=== PATIENT | female | born 1965 | race African-American/Black ===

== ENCOUNTER 2022-03-08 16:05 | Observation (INO) | payer OTHER, SELFPAY ==
[2022-03-08] VITALS (10 sets, daily range): BP systolic 168–198; BP diastolic 84–102; PULSE 62–99; RESP 15–20; TEMP 36.3–36.8; O2SAT 99–100; BMI 25.2
--- NOTE | ~2022-03-08 | CT_ITS ---
EXAMINATION: CT abdomen pelvis w con DATE: 03/08/2022 18:02 INDICATION: abd pain TECHNIQUE: Computed tomography (CT) of the abdomen and pelvis was performed with 100 mL Omnipaque-300 intravenous contrast. Automated exposure control and iterative reconstruction technique were employe d. The dose-length product was 538.63 mGy-cm. COMPARISON: None. FINDINGS: Lower thorax: Unremarkable Liver: Subcentimeter right lobe hypodensity, likely cyst. Biliary/Gallbladder: Gallbladder is mostly contracted. No bile duct dilation. Pancreas: No mass or duct dilation. Spleen: Normal. Adrenals:No mass. Kidneys: No mass, stone, or hydronephrosis. GI tract: No small or large bowel dilation. Normal appendix. Mesentery/Peritoneum: No ascites, mass, or free air. Retroperitoneum: No mass. Atherosclerotic abdominal aortic and/or arterial calcifications. Pelvis: Distended gallbladder, with wall thickening. Uterus is absent. Soft Tissues: Soft tissues and body wall unremarkable. Bones: No acute osseous finding. IMPRESSION: Possible cystitis. No other acute abdominopelvic process detected. Reviewed, dictated and finalized at location K.
--- NOTE | ~2022-03-08 | CT_ITS ---
EXAMINATION: CT brain wo con DATE: 03/08/2022 18:33 INDICATION: headache . TECHNIQUE: Computed tomography (CT) of the head was performed without intravenous contrast. The mA wa s adjusted according to patient size. Iterative reconstruction technique was employed. The dose-lengt h product was 605.33 mGy-cm. COMPARISON: None FINDINGS: No acute intracranial hemorrhage or extra-axial fluid collection. No hydrocephalus, mass, or herniation. No acute ischemic infarct. Unremarkable dural venous sinus attenuation. No acute osseous abnormality. The aerated spaces are clear. IMPRESSION: No acute intracranial process. Reviewed, dictated and finalized at location K.
--- NOTE | ~2022-03-08 | US_ITS ---
EXAMINATION: US abdomen limited DATE: 03/08/2022 16:49 INDICATION: Abdominal pain TECHNIQUE: Multiple grayscale and Doppler ultrasound images of the abdomen were obtained. COMPARISON: None available FINDINGS: Bowel gas obscures visualization of the pancreas. The visualized portions of the pancreas a re unremarkable. The liver is normal with normal echogenicity and echotexture. No surface nodularity. Normal hepatopetal flow in the main portal vein. The gallbladder is contracted. No stones or pericho lecystic fluid are identified. The normal common bile duct measures 4 mm. There was no sonographic Mu rphy sign. IMPRESSION: 1. No sonographic correlate for the patient's symptoms. Reviewed, dictated and finalized at location A.
--- NOTE | ~2022-03-08 | XR_ITS ---
XR chest 1V portable DATE: 03/08/2022 16:26 INDICATION: Generalized chest pain. Headache. TECHNIQUE: Portable upright AP chest on 03/08/2022 at 1621 hours COMPARISON: None FINDINGS: Normal heart size. No hilar or mediastinal enlargement. No pulmonary infiltrate or consolid ation, pleural effusion or pulmonary vascular congestion or pneumothorax. IMPRESSION: No active cardiopulmonary disease Reviewed, dictated and finalized at location A.
--- NOTE | 2022-03-08 16:07 | ECG_ITS ---
Measurements Intervals [place] Rate: 70 P: 60 [place]: 138 QRS: 47 QRSD: 82 T: 39 QT: 415 QTc: 450 Interpretive Statements SINUS RHYTHM POSSIBLE LEFT ATRIAL ENLARGEMENT LEFT VENTRICULAR HYPERTROPHY AND ST-T CHANGE ABNORMAL ECG NO PREVIOUS ECG AVAILABLE FOR COMPARISON Electronically Signed On 03-08-2022 16:18:41 CDT by Miah Mayorga M.D.
[2022-03-08 16:29] LABS: Basophils Percent Auto 0.4 % (0.2-1.2); Eosinophils Absolute Auto 0.1 K/mm3 (0-0.3); Eosinophils Percent Auto 0.6 % (0-4.4); Hematocrit 38.4 % (37.0-47.0); Hemoglobin 12.8 g/dL (12.0-15.0); Immature Granulocyte Absolute 0.02 K/mm3 (0.00-0.031); Immature Granulocyte Percent A 0.2 % (0-0.5); Lymphocytes Absolute Auto 3.64 K/mm3 (0.9-3.2); Lymphocytes Percent Auto 43.4 % (18.3-44.2); Mean Corpuscular HGB Conc 33.3 g/dl (32-36); Mean Corpuscular Hemoglobin 31.9 pg (26-34); Mean Corpuscular Volume 95.8 fl (80-100); Monocytes Absolute Auto 0.7 K/mm3 (0.1-0.6); Monocytes Percent Auto 8.7 % (2.6-8.5); Neutrophils Absolute Auto 3.9 K/mm3 (1.3-6.7); Neutrophils Percent Auto 46.7 % (45.5-73.1); Platelet Count Result 252 k/mm3 (150-375); Red Blood Count 4.01 M/mm3 (4.2-5.4); Red Cell Distribution Width 13.1 % (11.5-14.5); White Blood Count 8.4 K/mm3 (4.5-10.0)
[2022-03-08 16:34] LABS: Alanine Aminotransferase 16 U/L (6-35); Albumin Level 4.9 g/dL (3.5-5.1); Alkaline Phosphatase 81 U/L (38-126); Anion Gap 10 mmol/L (8-16); Aspartate Amino Transferase 26 U/L (14-36); Bilirubin,Total 0.6 mg/dL (0.2-1.3); Blood Urea Nitrogen 21 mg/dL (7-17); Calcium 10.1 mg/dL (8.4-10.2); Carbon Dioxide 22 mmol/L (22-30); Chloride 108 mmol/L (98-107); Estimated CRCL calculation 82 ml/min; Estimated Glomerular Filt Rate > 60; Glucose 94 mg/dL (65-110); Lipase 109 U/L (23-300); Potassium 3.5 mmol/L (3.4-5.0); Sodium 140 mmol/L (137-145)
[2022-03-08 16:44] LABS: INR 0.9; Prothrombin Time 11.9 Seconds (11.1-14.7)
[2022-03-08 16:45] LABS: Partial Thromboplastin Time 34.1 SECONDS (22.3-36.8)
[2022-03-08 16:46] LABS: Troponin I < 0.012 ng/mL (0.000-0.034)
[2022-03-08] MEDS: ASPIRIN 81 MG CHEWABLE TABLET 324 MG PO (16:56)
--- NOTE | 2022-03-08 18:24 | ED.GENADULT ---
HPI - General Adult General Chief complaint: Headache Stated complaint: chest pain Time Seen by Provider: 03/08/22 16:05 Source: RN notes reviewed History of Present Illness HPI narrative: Patient presents emergency department from home via EMS for chest pain. Patient states that she was sitting at home watching TV when she suddenly got a heaviness in her chest she states the pain went into her belly as well as some tingling in her chin and a frontal headache. States that she then became very sweaty but she called EMS at that time when they arrived states that symptoms were improved patient states she does have a history of previous AR the last 1 being in 2018 and is felt by cardiology done at [facility]. Patient at this time states she has upper abdominal pain she denies having any fevers or chills shortness of breath nausea vomiting diarrhea or any other symptoms patient states she had eaten barbecue earlier today as well as Ramen noodles and cheese balls from [employer] Home Medications Medication Instructions Recorded Confirmed albuterol sulfate 90 mcg/actuation 1 inh inhalation Q4H 03/04/21 03/04/21 aerosol inhaler blood glucose control, normal 03/04/21 03/04/21 (OneTouch Verio Mid Control solution) blood sugar diagnostic (OneTouch 03/04/21 03/04/21 Verio test strips) blood-glucose meter (OneTouch 03/04/21 03/04/21 Verio Flex Meter) calcium carbonate 600 mg calcium 600 mg PO BID 03/04/21 03/04/21 (1,500 mg) tablet cyclobenzaprine 10 mg tablet 10 mg PO ONCE 03/04/21 03/04/21 hydrochlorothiazide 25 mg tablet 25 mg PO DAILY 03/04/21 03/04/21 hydroxyzine HCl 50 mg tablet 50 mg PO QID PRN 03/04/21 03/04/21 insulin lispro 100 unit/mL 6 unit subcut TID 03/04/21 03/04/21 subcutaneous solution (Humalog U-100 Insulin) insulin syringe,safetyneedle 1 mL 03/04/21 03/04/21 30 gauge x 02/01 insulin syringe-needle U-100 0.5 03/04/21 03/04/21 mL 31 gauge x 516 (TRUEplus Insulin) insulin syringe-needle U-100 1 mL 03/04/21 03/04/21 31 gauge x 15/64 (BD Veo Insulin Syringe Ultra-Fine) lancets (Microlet Lancet) 03/04/21 03/04/21 lancets 33 gauge (OneTouch Delica 03/04/21 03/04/21 Lancets) lisinopril 40 mg tablet 40 mg PO DAILY 03/04/21 03/04/21 loratadine 10 mg tablet 10 mg PO DAILY 03/04/21 03/04/21 multivitamin (Daily-Sushma tablet) 1 tablet PO DAILY 03/04/21 03/04/21 ondansetron 4 mg disintegrating 4 mg PO Q8H 03/04/21 03/04/21 tablet pantoprazole 40 mg tablet,delayed 40 mg PO QAM 03/04/21 03/04/21 release pen needle, diabetic 31 gauge x 03/04/21 03/04/2102/01 (BD Ultra-Fine Short Pen Needle) sertraline 50 mg tablet 50 mg PO DAILY 03/04/21 03/04/21 atorvastatin 80 mg tablet 80 mg PO DAILY 03/04/22 escitalopram oxalate 10 mg tablet 10 mg PO DAILY 03/04/22 fluoxetine 20 mg capsule 20 mg PO DAILY 03/04/22 folic acid 1 mg tablet 1 mg PO DAILY PRN 03/04/22 glimepiride 2 mg tablet 2 mg PO BID 03/04/22 ibuprofen 800 mg tablet 800 mg PO Q6-8H PRN 03/04/22 labetalol 100 mg tablet 100 mg PO BID 03/04/22 Allergies Allergy/AdvReac Type Severity Reaction Status Date / Time adhesive Allergy Unknown Other Verified 03/04/22 13:48 oxycodone Allergy Unknown Rash Verified 03/04/22 13:48 tramadol Allergy Unknown Rash Verified 03/04/22 13:48 Review of Systems Review of Systems: Gen.: Denies fevers or chills Eyes: Denies eye pain or visual change ENT: Denies congestion Respiratory: Denies shortness of breath or cough CV: Reports chest pain GI: Reports upper abdominal pain denies nausea vomiting or diarrhea Musculoskeletal: Denies back pain or muscle pain Neuro: Denies numbness, tingling, weakness or focal weakness, reports frontal headache Skin: Denies rash Except as documented, all other systems reviewed and negative [facility] Past Medical History Medical History Arthritis Diabetes Surgical History Surgi
[2022-03-08] MEDS: LABETALOL HCL 100 MG TABLET PO (19:16)
[2022-03-08] MEDS: MORPHINE SULFATE (*CRX) 2 MG/ML INJ IV PUSH (19:18)
--- NOTE | 2022-03-08 19:27 | PC.NURSE ---
Assumed care of pt at this time. Pt alert and upright on stretcher, updated on POC.
[2022-03-08 19:34] LABS: Troponin I < 0.012 ng/mL (0.000-0.034)
--- NOTE | 2022-03-08 19:38 | PM.IMHP ---
H&P: HPI History of Present Illness Date/Time: 03/08/22 19:38 Chief Complaint: Chest pain PMFSH Past Medical History Medical History Arthritis Diabetes Surgical History Surgical History (Updated 03/04/22 @ 13:58 by Maria C Griffin MA) H/O foot surgery H/O lumpectomy (~2016) Social History Social History Social History: current smoker Years smoked: 35 Smoking status: Current every day smoker Tobacco type: cigarettes Alcohol intake: current Drinks per week: 6 Substance use: never Spiritual care concerns: Yes (Taoism) Meds Home Medications and Allergies Home Medications Medication Instructions Recorded Confirmed Type albuterol sulfate 90 mcg/actuation 1 inh inhalation Q8H PRN Shortness 03/04/21 03/08/22 History aerosol inhaler Of Breath blood glucose control, normal 03/04/21 03/04/21 History (OneTouch Verio Mid Control solution) blood sugar diagnostic (OneTouch 03/04/21 03/04/21 History Verio test strips) blood-glucose meter (OneTouch 03/04/21 03/04/21 History Verio Flex Meter) calcium carbonate 600 mg calcium 600 mg PO BID PRN Heartburn 03/04/21 03/08/22 History (1,500 mg) tablet hydrochlorothiazide 25 mg tablet 25 mg PO DAILY 03/04/21 03/08/22 History hydroxyzine HCl 50 mg tablet 50 mg PO DAILY PRN Itching 03/04/21 03/08/22 History insulin lispro 100 unit/mL 6 unit subcut TID 03/04/21 03/08/22 History subcutaneous solution (Humalog U-100 Insulin) insulin syringe,safetyneedle 1 mL 03/04/21 03/04/21 History 30 gauge x 5/16 insulin syringe-needle U-100 0.5 03/04/21 03/04/21 History mL 31 gauge x 5/16 (TRUEplus Insulin) insulin syringe-needle U-100 1 mL 03/04/21 03/04/21 History 31 gauge x 15/64 (BD Veo Insulin Syringe Ultra-Fine) lancets (Microlet Lancet) 03/04/21 03/04/21 History lancets 33 gauge (OneTouch Delica 03/04/21 03/04/21 History Lancets) lisinopril 40 mg tablet 40 mg PO DAILY 03/04/21 03/08/22 History loratadine 10 mg tablet 10 mg PO DAILY 03/04/21 03/08/22 History multivitamin (Daily-Sushma tablet) 1 tablet PO DAILY 03/04/21 03/08/22 History ondansetron 4 mg disintegrating 4 mg PO BID PRN Nausea 03/04/21 03/08/22 History tablet pantoprazole 40 mg tablet,delayed 40 mg PO QAM 03/04/21 03/08/22 History release pen needle, diabetic 31 gauge x 03/04/21 03/04/21 History 02/01 (BD Ultra-Fine Short Pen Needle) atorvastatin 80 mg tablet 80 mg PO DAILY 03/04/22 03/08/22 History escitalopram oxalate 10 mg tablet 10 mg PO DAILY 03/04/22 03/08/22 History folic acid 1 mg tablet 1 mg PO DAILY 03/04/22 03/08/22 History glimepiride 2 mg tablet 2 mg PO BID 03/04/22 03/08/22 History ibuprofen 800 mg tablet 800 mg PO Q6-8H PRN Pain 03/04/22 03/08/22 History labetalol 100 mg tablet 100 mg PO BID 03/04/22 03/08/22 History celecoxib 100 mg capsule 100 mg PO DAILY PRN Pain 03/08/22 03/08/22 History clonidine 0.2 mg/24 hr weekly 1 patch WEEKLY 03/08/22 03/08/22 History transdermal patch duloxetine 30 mg capsule,delayed 30 mg PO DAILY 03/08/22 03/08/22 History release insulin glargine 100 unit/mL (3 42 unit subcut HS 03/08/22 03/08/22 History mL) subcutaneous pen (Bongaglar Dylan U-100 Insulin) nifedipine 90 mg tablet,extended 90 mg PO DAILY 03/08/22 03/08/22 History release Allergies Allergy/AdvReac Type Severity Reaction Status Date / Time adhesive Allergy Unknown Other Verified 03/04/22 13:48 oxycodone Allergy Unknown Rash Verified 03/04/22 13:48 tramadol Allergy Unknown Rash Verified 03/04/22 13:48 Vital Signs Vital Signs - 24 hr 03/08/22 16:11 03/08/22 18:48 03/08/22 19:16 Temperature 97.3 F L 98.3 F Pulse Rate 72 67 99 Respiratory Rate 17 17 Blood Pressure 193/84 H 198/96 H Pulse Oximetry 100 100 Oxygen Delivery Room Air 03/08/22 19:25 Temperature Pulse Ra
--- NOTE | 2022-03-08 20:09 | PC.NURSE ---
Attempted to call report to IMU at this time and was informed pt will have roomate. Needs COVID swab.
[2022-03-08 20:55] LABS: SARS-CoV-2 RNA PCR Negative
--- NOTE | 2022-03-08 21:08 | ADMGEN ---
This patient, Elizabeth Clark, was admitted to IMU Room 206-01. Patient/family oriented to hospital policies and general routines including ID bracelet, bed and alarms, visiting hours, pain management, procedures, bathroom and other care routines, personal items, smoking policy, room service/diet, and visiting hours. Information on how to activate the Rapid Response Team has been discussed. Patient/Family are encouraged to report perceived risks to care and to ask questions if they do not understand what they are told or what they should do.
[2022-03-08 21:28] LABS: Glucose Point of Care 118 mg/dl (65-105)
[2022-03-08 22:27] LABS: Troponin I < 0.012 ng/mL (0.000-0.034)
[2022-03-08] MEDS: SUMAtriptan SUCCINATE 6 MG/0.5 ML VIAL SUB-Q (22:40)
[2022-03-09] VITALS (14 sets, daily range): BP systolic 116–160; BP diastolic 66–88; PULSE 56–71; RESP 12–20; TEMP 36–36.9; O2SAT 98–100
--- NOTE | 2022-03-09 | ECHO_ITS ---
Patient Info Name: Elizabeth Clark Age: 56 years : 1965 Gender: Female Ht: 69 in Wt: 171 lbs BSA: 1.95 m2 HR: 60 bpm BP: 160 / 84 mmHg Exam Date: 03/09/2022 9:00 AM Exam Location: [facility] Patient Status: Inpatient Admit Date: 03/08/2022 Staff Ordering Physician: Nova Gandhi MD Human Resources Operations Specialist: Erick Ponce, GREER, RT Attending Provider: Nova Gandhi MD Referring Physician: Oksana SANCHEZ; Exam Type: CA echo doppler color flow Study Info Indications R07.9 - Chest pain, unspecified Complete two-dimensional, color flow and Doppler transthoracic echocardiogram is performed. Strain analysis performed. Summary 1. Complete two-dimensional, color flow and Doppler transthoracic echocardiogram is performed. 2. Normal LV size, mild LVH, normal LV systolic function with ejection fraction 65-70%; grade 2 diastolic dysfunction. Mild left atrial enlargement. Normal mitral valve structure, trivial MR. Aortic valve not well visualized, no hemodynamically significant stenosis. Mild aortic regurgitation. Trivial TR, unable to assess RVSP due to inadequate TR jet. Sinus rhythm. Left Ventricle Left ventricular chamber dimension is normal. Left ventricular systolic function is normal, estimated at 65-70%. There is mildly increased left ventricular wall thickness. Left ventricular septal wall motion is normal. The left ventricular diastolic function is grade II diastolic dysfunction. Right Ventricle Right ventricular chamber dimension is normal. Right ventricular systolic function is normal. Left Atria Left atrial chamber dimension is mildly enlarged. Right Atria Right atrial chamber dimension is normal. Aortic Valve The aortic valve is not well visualized. There is no aortic valve stenosis. There is mild aortic valve regurgitation. Pulmonic Valve The pulmonic valve is not well visualized. Mitral Valve The mitral valve has normal leaflets. There is trace mitral valve regurgitation. Tricuspid Valve The tricuspid valve leaflets are normal. There is trace tricuspid valve regurgitation. Pericardium/Pleural The pericardium appears normal. Inferior Vena Cava Normal inferior vena cava with >50% collapse upon inspiration consistent with normal right atrial pressure, 8 mmHg. Aorta The aortic root size at the sinus of Valsalva is normal. The prox ascending aorta size is normal. Left Ventricular Outflow Tract Name Value Normal LVOT 2D LVOT Diameter 2.1 cm LVOT Doppler LVOT Peak Gradient 4 mmHg LVOT Mean Gradient 2 mmHg LVOT VTI 21 cm LVOT VTI/AV VTI Ratio 0.8 LVOT Stroke Volume 74 ml LVOT CO 4.5 l/min LVOT CI 2.3 l/min/m2 Mitral Valve Name Value Normal MV Doppler
[2022-03-09 04:45] LABS: Basophils Percent Auto 0.6 % (0.2-1.2); Eosinophils Absolute Auto 0.1 K/mm3 (0-0.3); Eosinophils Percent Auto 1.3 % (0-4.4); Hematocrit 36.1 % (37.0-47.0); Hemoglobin 11.7 g/dL (12.0-15.0); Immature Granulocyte Absolute 0.01 K/mm3 (0.00-0.031); Immature Granulocyte Percent A 0.2 % (0-0.5); Lymphocytes Absolute Auto 2.66 K/mm3 (0.9-3.2); Lymphocytes Percent Auto 49.4 % (18.3-44.2); Mean Corpuscular HGB Conc 32.4 g/dl (32-36); Mean Corpuscular Hemoglobin 31.7 pg (26-34); Mean Corpuscular Volume 97.8 fl (80-100); Mean Platelet Volume 10.3 fl (7.4-10.4); Monocytes Absolute Auto 0.5 K/mm3 (0.1-0.6); Monocytes Percent Auto 9.7 % (2.6-8.5); Neutrophils Absolute Auto 2.1 K/mm3 (1.3-6.7); Neutrophils Percent Auto 38.8 % (45.5-73.1); Platelet Count Result 225 k/mm3 (150-375); Red Blood Count 3.69 M/mm3 (4.2-5.4); Red Cell Distribution Width 13.1 % (11.5-14.5); White Blood Count 5.4 K/mm3 (4.5-10.0)
[2022-03-09 04:59] LABS: Alanine Aminotransferase 11 U/L (6-35); Alkaline Phosphatase 59 U/L (38-126); Anion Gap 5 mmol/L (8-16); Aspartate Amino Transferase 18 U/L (14-36); Bilirubin,Total 0.6 mg/dL (0.2-1.3); Blood Urea Nitrogen 14 mg/dL (7-17); Calcium 8.8 mg/dL (8.4-10.2); Carbon Dioxide 24 mmol/L (22-30); Chloride 108 mmol/L (98-107); Estimated CRCL calculation 94 ml/min; Estimated Glomerular Filt Rate > 60; Glucose 112 mg/dL (65-110); Potassium 3.7 mmol/L (3.4-5.0); Sodium 137 mmol/L (137-145)
--- NOTE | 2022-03-09 08:35 | PM.CNCAR ---
Assessment and Plan Assessment and plan (1) Chest pain: Code(s): R07.9 - Chest pain, unspecified Status: Acute Assessment and Plan: 56-year-old female with hypertension, type 2 diabetes mellitus on insulin, ? COPD, ? History of CVA, anxiety/depression, tobacco abuse, alcohol abuse. Patient presents to hospital with epigastric and lower substernal chest discomfort associated with nausea, vomiting, headache in the setting of heavy alcohol abuse EKG shows sinus rhythm, LVH with secondary ST-T abnormality. Serial troponins are negative. Patient does have multiple coronary risk factors including hypertension, diabetes mellitus, tobacco abuse. Her echocardiogram which I personally evaluated showed preserved LV systolic function without significant wall motion abnormality. She may need noninvasive ischemic evaluation, which can be performed as an outpatient. Patient was advised to cut down on alcohol and stop smoking. Patient had 2.3 asymptomatic pause on telemetry while sleeping. Recommend wean off clonidine. Outpatient Cardiology follow-up will be arranged for the patient. (2) Acute upper abdominal pain: Code(s): R10.10 - Upper abdominal pain, unspecified Status: Acute Assessment and Plan: Evaluation and management as per primary team. (3) Uncontrolled hypertension: Code(s): I10 - Essential (primary) hypertension Status: Acute Assessment and Plan: Optimal blood pressure control. Patient advised to be compliant with medical regimen and low-salt diet. Blood pressure management can be done as an outpatient. She is currently on lisinopril, nifedipine, hydrochlorothiazide, labetalol. Recommend weaning off clonidine. Patient's compliance with medical regimen is questionable, and sudden withdrawal of clonidine may cause rebound hypertension. (4) Alcohol abuse: Code(s): F10.10 - Alcohol abuse, uncomplicated Status: Acute Assessment and Plan: Patient advised to cut down on alcohol. (5) Tobacco abuse: Code(s): Z72.0 - Tobacco use Status: Acute Assessment and Plan: Patient advised to stop smoking. History of Present Illness History of Present Illness Consult date/time: 03/09/22 08:35 Requesting physician: Fidencio Adams DO Consult reason: chest pain Reason For Visit: Chest Pain/Upper Abdominal Pain/NOLAN/Hypertension Narrative: DATE OF CONSULT: 03/09/2022 REASON FOR CONSULT: Chest pain, abdominal pain REQUESTING PHYSICIAN:DO Angie CHIEF COMPLAINT: Chest pain HPI: 56-year-old female with hypertension, type 2 diabetes mellitus on insulin, ? COPD, ? History of CVA, anxiety/depression, tobacco abuse, alcohol abuse. Patient presented to [facility] Emergency Room on 03/08/2022 with complaints of epigastric and lower substernal chest discomfort associated with diaphoresis, nausea and vomiting that lasted for about 30 minutes. Patient also had complained of headache. Patient drinks on a regular basis, about 3-4 beers and 4 shots of vodka at least every other day. She states that she has been drinking heavily over last weekend. Since hospitalization, she denies any recurrent chest pain. Patient gives questionable history of ? [facility], and states that she had a cardiac catheterization done in 2013. She does not recall the details of the hospital on the results, but denies any previous angioplasty or stenting. Patient gives family history of diabetes mellitus, hypertension in multiple family members. She denies family history of early CAD or sudden cardiac . Blood pressure in the ER was elevated at 194/84. EKG on my personal evaluation showed sinus rhythm, left atrial enlargement, LVH with secondary ST-T abnormality. Chest x-ray unremarkable. Ultrasound abdomen unremarkable. CT chest/abdomen suggestive of Possible cystitis. No other acute abdominopelvic process detected. Head CT unremarkable. Serial troponins negative. Lipase within
--- NOTE | 2022-03-09 11:28 | PM.IMPN ---
Progress Note: A&P Assessment and Plan (1) Uncontrolled hypertension: Code(s): I10 - Essential (primary) hypertension Status: Acute Assessment and Plan: Restart home medications Cautious normalization of blood pressure Supportive care Continue to monitor (2) Chest pain: Code(s): R07.9 - Chest pain, unspecified Status: Acute Assessment and Plan: Cardiology consult appreciated. Echo pending. Troponins negative. Likely noncardiac. (3) Headache: Code(s): R51.9 - Headache, unspecified Status: Acute Assessment and Plan: Likely secondary to hypertension patient with systolic blood pressures in the 200 upon presentation to emergency room Supportive care Blood pressure improved after resuming home medications. (4) Acute upper abdominal pain: Code(s): R10.10 - Upper abdominal pain, unspecified Status: Acute Assessment and Plan: Epigastric pain. History of gastric ulcers. Intermittent loose stools prior to coming into the hospital. Will have GI evaluate the patient. (5) Tobacco dependence: Code(s): F17.200 - Nicotine dependence, unspecified, uncomplicated Status: Acute Assessment and Plan: Nicotine patch as needed (6) Alcohol dependence: Code(s): F10.20 - Alcohol dependence, uncomplicated Status: Acute Assessment and Plan: CIWA protocol as needed Subjective Date/time seen: 03/09/22 11:28 Patient complaining more of epigastric pain. Exam Narrative: General: alert and oriented Psych: appropriate mood nad affect Eyes: PERRLA Neck: Trachea midline, no new lesions Skin: no changes Lungs: CTA Cardiac: Normal S1,S2, no MGR ABD: soft, nd, nt, nbs Ext: no new lesions, no cce Vasc: Pulses intact Objective Data Vital Signs Vital Signs: Vital Signs - 24 hr 03/08/22 16:11 03/08/22 18:48 03/08/22 19:16 Temperature 97.3 F L 98.3 F Pulse Rate 72 67 99 Pulse Rate [Monitor] Respiratory Rate 17 17 Blood Pressure 193/84 H 198/96 H Pulse Oximetry 100 100 Oxygen Delivery Room Air 03/08/22 19:25 03/08/22 19:52 03/08/22 20:33 Temperature Pulse Rate 69 69 64 Pulse Rate [Monitor] Respiratory Rate 18 18 15 Blood Pressure 186/102 H 189/87 H Pulse Oximetry 100 99 99 Oxygen Delivery 03/08/22 21:05 03/08/22 21:08 03/08/22 22:50 Temperature 97.3 F L Pulse Rate 62 76 Pulse Rate [Monitor] Respiratory Rate 20 20 Blood Pressure 168/89 H 180/90 H Pulse Oximetry 100 100 99 Oxygen Delivery Room Air 03/08/22 22:50 03/08/22 21:30 03/08/22 22:00 Temperature Pulse Rate 68 Pulse Rate [Monitor] Respiratory Rate Blood Pressure Pulse Oximetry 99 Oxygen Delivery Room Air Room Air 03/09/22 00:00 03/09/22 00:00 03/09/22 00:00 Temperature 98.5 F Pulse Rate 69 65 Pulse Rate [Monitor] Respiratory Rate 20 Blood Pressure 153/76 H Pulse Oximetry 100 Oxygen Delivery Room Air 03/09/22 02:00 03/09/22 04:00 03/09/22 04:00 Temperature Pulse Rate 62 67 Pulse Rate [Monitor] Respiratory Rate Blood Pressure Pulse Oximetry Oxygen Delivery Room Air 03/09/22 04:00 03/09/22 06:00 03/09/22 07:40 Temperature 98.2 F 98.3 F Pulse Rate 71 58 L 61 Pulse Rate [Monitor] Respiratory Rate 12 12 Blood Pressure 160/84 H 136/72 Pulse Oximetry 100 100 Oxygen Delivery 03/09/22 08:00 03/09/22 08:00 03/09/22 08:00 Temperature Pulse Rate 60 Pulse Rate [Monitor] 60 Respiratory Rate Blood Pressure 136/72 Pulse Oximetry 100 Oxygen Delivery Room Air 03/09/22 10:00 Temperature Pulse Rate 69 Pulse Rate [Monitor] Respiratory Rate Blood Pressure Pulse Oximetry Oxygen Delivery Intake/Output Intake/Output: Intake & Output 03/06/22 03/07/22 03/08/22 03/09/22 23:59 23:59 23:59 23:59 Intake Total 100 200 Output Total 800 Balance -700 200 Meds/Results Medications: Active Med
[2022-03-09 12:15] LABS: Glucose Point of Care 136 mg/dl (65-105)
[2022-03-09] MEDS: ACETAMINOPHEN 325 MG TABLET 650 MG PO (12:22)
[2022-03-09] MEDS: lisinopriL 20 MG TABLET 40 MG PO (12:22)
[2022-03-09] MEDS: LABETALOL HCL 100 MG TABLET PO ×2 (12:23→16:48)
[2022-03-09] MEDS: ATORVASTATIN 40 MG TABLET 80 MG PO (12:23)
[2022-03-09] MEDS: FOLIC ACID 1 MG TABLET PO (12:23)
[2022-03-09] MEDS: hydroCHLOROthiazide 25 MG TABLET PO (12:23)
[2022-03-09] MEDS: LORATADINE 10 MG TABLET PO (12:23)
[2022-03-09] MEDS: ESCITALOPRAM OXALATE 10 MG TABLET PO (12:24)
[2022-03-09] MEDS: DULoxetine HCL 30 MG CAPSULE.DR PO (12:24)
[2022-03-09] MEDS: MULTIVITAMINS THERAPEUTIC TAB (*BKC) 1 TABLET PO (12:24)
[2022-03-09] MEDS: NIFEdipine 30 MG TAB.ER.24 90 MG PO (12:24)
[2022-03-09] MEDS: PANTOPRAZOLE 40 MG TABLET PO (12:24)
--- NOTE | 2022-03-09 12:30 | PC.NURSE ---
This patient, Elizabeth Clark, was transferred to [[id number]] on 03/09/22 at 1230. Personal belongings sent with patient. Report given to [MATT Reyna @ [phone] ]. Appropriate documentation sent with patient.
--- NOTE | 2022-03-09 14:42 | PC.NURSE ---
EGD consent signed.
[2022-03-09 16:17] LABS: Glucose Point of Care 113 mg/dl (65-105)
--- NOTE | 2022-03-09 16:50 | PC.NURSE ---
This patient, Elizabeth Clark, was transferred to [facility] Surg Room [id number] [id number] from IMU. Patient/family oriented to hospital policies and general routines including ID bracelet, bed and alarms, visiting hours, pain management, procedures, bathroom and other care routines, personal items, smoking policy, room service/diet, and visiting hours. Information on how to activate the Rapid Response Team has been discussed. Patient/Family are encouraged to report perceived risks to care and to ask questions if they do not understand what they are told or what they should do.
[2022-03-09 20:27] LABS: Glucose Point of Care 143 mg/dl (65-105)
[2022-03-10] VITALS (10 sets, daily range): BP systolic 112–141; BP diastolic 63–76; PULSE 60–92; RESP 16–20; TEMP 35.8–36.2; O2SAT 98–100
[2022-03-10 07:44] LABS: Glucose Point of Care 136 mg/dl (65-105)
[2022-03-10] MEDS: NIFEdipine 30 MG TAB.ER.24 90 MG PO (08:06)
[2022-03-10] MEDS: LORATADINE 10 MG TABLET PO (08:06)
[2022-03-10] MEDS: FOLIC ACID 1 MG TABLET PO (08:06)
[2022-03-10] MEDS: hydroCHLOROthiazide 25 MG TABLET PO (08:06)
[2022-03-10] MEDS: ESCITALOPRAM OXALATE 10 MG TABLET PO (08:06)
[2022-03-10] MEDS: LABETALOL HCL 100 MG TABLET PO (08:07)
[2022-03-10] MEDS: DULoxetine HCL 30 MG CAPSULE.DR PO (08:07)
[2022-03-10] MEDS: MULTIVITAMINS THERAPEUTIC TAB (*BKC) 1 TABLET PO (08:08)
[2022-03-10] MEDS: ATORVASTATIN 40 MG TABLET 80 MG PO (08:08)
[2022-03-10] MEDS: PANTOPRAZOLE 40 MG TABLET PO (08:08)
[2022-03-10] MEDS: lisinopriL 20 MG TABLET 40 MG PO (08:08)
--- NOTE | 2022-03-10 09:45 | WPDANESEPPF ---
Anes - Initial Pre Proc Eval Procedure: Operation Date: 03/10/22 13:30 Proposed Procedures p Esophagogastroduodenoscopy - Josh Rivero MD Date/Time: 03/10/22 09:45 Surgeon: Nova Gandhi MD Pre Op Diagnosis: Chest Pain/Upper Abdominal Pain/NOLAN/Hypertension Patient Data Age: 56 Gender: F Height: 1.75 m Weight: 76.5 kg Last Vital Signs Temp 35.8 C L 03/10/22 06:00 Pulse 62 03/10/22 08:07 Resp 16 03/10/22 06:00 BP 141/76 H 03/10/22 06:00 Pulse Ox 100 03/10/22 06:00 O2 Del Method Room Air 03/09/22 16:34 Allergies Allergy/AdvReac Type Severity Reaction Status Date / Time adhesive Allergy Unknown Other Verified 03/04/22 13:48 oxycodone Allergy Unknown Rash Verified 03/04/22 13:48 tramadol Allergy Unknown Rash Verified 03/04/22 13:48 Home Medications Medication Instructions Recorded Confirmed Type albuterol sulfate 90 mcg/actuation 1 inh inhalation Q8H PRN Shortness 03/04/21 03/08/22 History aerosol inhaler Of Breath blood glucose control, normal 03/04/21 03/09/22 History (OneTouch Verio Mid Control solution) blood sugar diagnostic (OneTouch 03/04/21 03/09/22 History Verio test strips) blood-glucose meter (OneTouch 03/04/21 03/09/22 History Verio Flex Meter) calcium carbonate 600 mg calcium 600 mg PO BID PRN Heartburn 03/04/21 03/08/22 History (1,500 mg) tablet hydrochlorothiazide 25 mg tablet 25 mg PO DAILY 03/04/21 03/08/22 History hydroxyzine HCl 50 mg tablet 50 mg PO DAILY PRN Itching 03/04/21 03/08/22 History insulin lispro 100 unit/mL 6 unit subcut TID 03/04/21 03/08/22 History subcutaneous solution (Humalog U-100 Insulin) insulin syringe,safetyneedle 1 mL 03/04/21 03/09/22 History 30 gauge x 02/01 insulin syringe-needle U-100 0.5 03/04/21 03/09/22 History mL 31 gauge x 5/16 (TRUEplus Insulin) insulin syringe-needle U-100 1 mL 03/04/21 03/09/22 History 31 gauge x 15/64 (BD Veo Insulin Syringe Ultra-Fine) lancets (Microlet Lancet) 03/04/21 03/09/22 History lancets 33 gauge (OneTouch Delica 03/04/21 03/09/22 History Lancets) lisinopril 40 mg tablet 40 mg PO DAILY 03/04/21 03/08/22 History loratadine 10 mg tablet 10 mg PO DAILY 03/04/21 03/08/22 History multivitamin (Daily-Sushma tablet) 1 tablet PO DAILY 03/04/21 03/08/22 History ondansetron 4 mg disintegrating 4 mg PO BID PRN Nausea 03/04/21 03/08/22 History tablet pantoprazole 40 mg tablet,delayed 40 mg PO QAM 03/04/21 03/08/22 History release pen needle, diabetic 31 gauge x 03/04/21 03/09/22 History 5/16 (BD Ultra-Fine Short Pen Needle) atorvastatin 80 mg tablet 80 mg PO DAILY 03/04/22 03/08/22 History escitalopram oxalate 10 mg tablet 10 mg PO DAILY 03/04/22 03/08/22 History folic acid 1 mg tablet 1 mg PO DAILY 03/04/22 03/08/22 History glimepiride 2 mg tablet 2 mg PO BID 03/04/22 03/08/22 History ibuprofen 800 mg tablet 800 mg PO Q6-8H PRN Pain 03/04/22 03/08/22 History labetalol 100 mg tablet 100 mg PO BID 03/04/22 03/08/22 History celecoxib 100 mg capsule 100 mg PO DAILY PRN Pain 03/08/22 03/08/22 History clonidine 0.2 mg/24 hr weekly 1 patch WEEKLY 03/08/22 03/08/22 History transdermal patch duloxetine 30 mg capsule,delayed 30 mg PO DAILY 03/08/22 03/08/22 History release insulin glargine 100 unit/mL (3 42 unit subcut HS 03/08/22 03/08/22 History mL) subcutaneous pen (Christopher Richardson U-100 Insulin) nifedipine 90 mg tablet,extended 90 mg PO DAILY 03/08/22 03/08/22 History release Laboratory Tests 03/09/22 03/09/22 03/09/22 12:12 16:10 20:21 POC Capillary Glucose 136 mg/dl H mg/dl 113 mg/dl H mg/dl 143 mg/dl H mg/dl (65-105) (65-105) (65-105) 03/10/22 07:28 POC Capillary Glucose 136 mg/dl H mg/dl (65-105) Patient hx anesthesia problems: none Family hx anesthesia problems: none Results Review: All pre-operative results and documents have been reviewed as part of the pre-oper
[2022-03-10 09:48] LABS: Glucose Point of Care 159 mg/dl (65-105)
[2022-03-10] MEDS: LACTATED RINGERS 1,000 ML 150 ML IV CONT (09:52)
--- NOTE | 2022-03-10 11:04 | WPDGICN ---
Assessment and Plan Assessment and plan (1) Acute upper abdominal pain: Code(s): R10.10 - Upper abdominal pain, unspecified Status: Acute Assessment and Plan: negative cardiac work up, will do EGD to assess if GI issue more recommendations after egd she is on ppi for now (2) Uncontrolled hypertension: Code(s): I10 - Essential (primary) hypertension Status: Acute Assessment and Plan: cardiology on board and better with meds (3) Alcohol dependence: Code(s): F10.20 - Alcohol dependence, uncomplicated Status: Acute Assessment and Plan: recommend cessation (4) Seizures: Code(s): R56.9 - Unspecified convulsions Status: Acute Assessment and Plan: previous history (5) Tobacco abuse: Code(s): Z72.0 - Tobacco use Status: Acute (6) Chest pain: Code(s): R07.9 - Chest pain, unspecified Status: Acute (7) Colon polyp: Code(s): K63.5 - Polyp of colon Status: Acute Assessment and Plan: she is due to have another colonoscopy, will schedule as outpatient GI Consult Note Consult date/time: 03/10/22 11:04 HPI: Elizabeth Clark is a 56 year old female with history of HTN, DM here with epigastric and lower substernal chest discomfort associated with diaphoresis, nausea and vomiting. She has been having similar problem for some time. She also had headache.? Patient drinks on a regular basis, about 3-4 beers and 4 shots of vodka at least every other day.?On arrival to ER her BP was uncontrolled and also her diabetes. Chest pain improved and evaluated by cardiology. She had colonoscopy 3 years ago with polyps and she was told to repeat in [address] scan a/p reviewed and showed possible cystitis. No other acute abdominopelvic process detected. Review of Systems Constitutional: Constitutional: Denies headache(s) and Denies weakness Eyes: Eyes: Denies blurry vision ENT: Reports Normal hearing present, Denies headache(s) and Denies neck pain Cardiovascular: Cardiovascular: Reports chest pain and Denies dyspnea Respiratory: Respiratory: Denies dyspnea Gastrointestinal: Gastrointestinal: Reports no additional gastrointestinal complaints Genitourinary: Genitourinary: Denies dysuria Musculoskeletal: Musculoskeletal: Denies neck pain Integumentary/Breasts: Skin/Breast: Denies dry skin Neurologic: Reports Normal hearing present, Denies headache(s) and Denies weakness Psychiatric: Psychiatric: Denies anxiety Endocrine: Endocrine: Denies change in body appearance Hematologic/Lymphatic: Hematologic/Lymphatic: Denies easy bleeding Allergic/Immunologic: Allergic/Immunologic: Denies urticaria PMFSH Past Medical History Medical History (Updated 03/10/22 @ 14:28 by Josh Rivero MD) Alcohol abuse Anxiety Arthritis CAD (coronary artery disease) Cardiomyopathy Colon polyp COPD (chronic obstructive pulmonary disease) Depression Diabetes Diabetes type 2, controlled Hyperlipidemia Hypertension Seizures Surgical History Surgical History H/O foot surgery H/O lumpectomy (~2017) Family History Family History (Updated 03/09/22 @ 09:34 by Rob Mcmanus MD) Other Diabetes mellitus Hypertension Social History Social History Social History: current smoker Years smoked: 35 Smoking status: Current every day smoker Tobacco type: cigarettes Alcohol intake: current Drinks per week: 6 Substance use: never Spiritual care concerns: Yes (Confucianist) Meds Home Medications and Allergies Home Medications Medication Instructions Recorded Confirmed Type albuterol sulfate 90 mcg/actuation 1 inh inhalation Q8H PRN Shortness 03/04/21 03/08/22 History aerosol inhaler Of Breath blood glucose control, normal 03/04/21 03/09/22 History (OneTouch Verio Mid Control soluti
[2022-03-10 11:45] LABS: Glucose Point of Care 135 mg/dl (65-105)
--- NOTE | 2022-03-10 12:55 | PM.DS ---
DS: Admitting Diagnosis Discharge Date 03/10/2022 1255 Admitting Diagnosis chest pain DS: Discharge Diagnosis Discharge Diagnosis (1) Chest pain: Qualifiers: Chest pain type: other chest pain Qualified Code(s): R07.89 - Other chest pain Code(s): R07.9 - Chest pain, unspecified Status: Acute (2) Uncontrolled hypertension: Code(s): I10 - Essential (primary) hypertension Status: Acute (3) Erosive gastritis: Code(s): K29.60 - Other gastritis without bleeding Status: Acute (4) Alcohol abuse: Code(s): F10.10 - Alcohol abuse, uncomplicated Status: Chronic (5) Tobacco abuse: Code(s): Z72.0 - Tobacco use Status: Chronic (6) Sinus pause: Code(s): I45.5 - Other specified heart block Status: Acute Assessment and Plan: Asymptomatic. 2.3 second pause. DS: Summary Hospital Course Reason for hospitalization: chest pain Hospital Course: Elizabeth Clark is a 56 yo female with medical history of hypertension, insulin dependent diabetes mellitus, arthritis, tobacco dependence and alcohol abuse. She presented to the ED, from home, via EMS for chest pain.? Patient states that she was sitting at home watching TV when she suddenly got a heaviness in her chest. The pain went into her belly as well as some tingling in her chin and a frontal headache.? States that she then became very sweaty but she called EMS at that time when they arrived states that symptoms were improved patient states she does have a history of previous MA the last 1 being in 2018 and is followed by cardiology done at [facility].? She also had upper abdominal pain. No emesis, fevers or chills, shortness of breath, nausea, vomiting, diarrhea. She had eaten barbecue earlier in the day, as well as Ramen noodles and cheese balls from [employer]. Her EKG showed sinus rhythm. Initial troponin was negative. CBC and chemistry were unremarkable. The patient was referred for observation. Troponin I were trended and negative. Telemetry noted one episode of 2.3 second pause and the patient was asymptomatic. Cardiology was consulted and recommended outpatient ischemic work-up as well as weaning clonidine. The patient was continued on home doses of HCTZ 25 mg, Labetolol 100 mg BID, lisinopril 40 mg daily, and Procardia 90 mg daily. Her BP improved by discharge. Clonidine 0.2 mg transdermal patch was discontinued. She was provided with oral clonidine 0.1 mg BID x 4 days, then 0.1 mg daily and then instructed to stop as recommended. Gastroenterology was consulted for concerns for upper abdominal pain. EGD was completed and showed erosive gastritis without acute bleeding. H/H remained stable. The patient was AOx3, tolerating diet with stable vitals at discharge. She was counseled on follow up appointments, quitting smoking, diet modifications, physical activity and avoiding alcohol intake. She was counseled to stop taking NSAIDs, as well. She was instructed to continue protonix 40 mg daily. She will have outpatient follow up with GI, Cardiology and PCP. Time spent discussing smoking cessation with patient: 3 to 10 minutes Status at Discharge Cognitive/behavioral status at discharge: AAOx3. Pleasant and cooperative. Functional status at discharge: independent ambulation Overall status at discharge: patient is back to baseline Time Spent with Patient Time attestation: Total time spent providing and/or coordinating discharge services: Time spent: Greater than 30 minutes Exam Narrative: General: alert and oriented x3. No acute distress. Psych: appropriate mood and affect. cooperative with examination. HEENT: Normocephalic. Atraumatic. PERRLA. Sclera nonicteric. Mucous membranes moist. Neck: Supple. Trachea midline, no new lesions Skin: Normal for ethnicity. Warm & dry. No open lesions. Lungs: lungs CTAB. No wheezing, rhonchi or rales. Cardiac: Normal S1,S2, no murmurs, gallops or rubs. ABD: sof
== END 2022-03-10 13:55 | disposition home or self-care (01) ==
LOC: ANHED 19:02 → ANHIMU 21:38 → ANH3MEDSUR 03-10 07:48 → ANHIMU 03-11 13:57
PROVIDERS: Internal Medicine Gastroenterology; Admitting Provider Internal Medicine; Emergency Provider Emergency Medicine; PCP Internal Medicine Infectious Disease; Visit Provider Nurse Practitioner Family
PROC: 0DJ08ZZ Inspection of Upper Intestinal Tract, Via Natural or Artificial Opening Endoscopic (ICD-10-PCS; CPT 43235; principal; 2022-03-10 13:30)
DX: R07.9 Chest pain, unspecified (principal); R51.9 Headache, unspecified; K29.60 Other gastritis without bleeding; I10 Essential (primary) hypertension; I25.2 Old myocardial infarction; E11.9 Type 2 diabetes mellitus without complications; Z79.4 Long term (current) use of insulin; F17.210 Nicotine dependence, cigarettes, uncomplicated; F10.20 Alcohol dependence, uncomplicated; Z86.010 Personal history of colon polyps; I45.5 Other specified heart block; Z20.822 Contact with and (suspected) exposure to COVID-19
CPT/HCPCS: 43239; 36415; 70450; 71045; 74177; 76705; 80053; 82948; 83690; 84484; 85025; 85610; 85730; 88305; 88342; 93005; 93306; 96360; 96361; 96365; 96372; 96375; 99285; A9270; C9803; G0378; G0379; J0131; J2001; J2270; J2704; J3030; J7120; Q9967; U0003; U0005

== ENCOUNTER 2022-04-26 09:29 | Outpatient (CLI) | payer OTHER, SELFPAY ==
[2022-04-29 03:35] LABS: H pylori Ag Stool Detected (Not Detected)
== END 2022-04-26 09:30 | disposition home or self-care (01) ==
LOC: ANHLAB 09:30
PROVIDERS: PCP Internal Medicine Infectious Disease; Visit Provider Nurse Practitioner
DX: A04.8 Other specified bacterial intestinal infections (principal)
CPT/HCPCS: 87338

== ENCOUNTER 2022-07-19 02:29 | Day surgery (SDC) | payer OTHER, SELFPAY ==
[2022-07-08 10:24] VITALS: BMI 26.0
[2022-07-19 08:41] VITALS: BP 159/90; PULSE 78; RESP 18; TEMP 36.1; O2SAT 99
[2022-07-19] MEDS: LACTATED RINGERS 1,000 ML 150 ML IV CONT (08:51)
--- NOTE | 2022-07-19 08:51 | WPDANESEPPF ---
Anes - Initial Pre Proc Eval Procedure: Operation Date: 07/19/22 09:45 Proposed Procedures p Screening Colonoscopy - Josh Rivero MD Date/Time: 07/19/22 08:51 Surgeon: Josh Rivero MD Pre Op Diagnosis: neoplasm screening, hx of colon polyps Patient Data Age: 56 Gender: F Height: 1.75 m Weight: 78.9 kg Last Vital Signs Temp 36.1 C L 07/19/22 08:41 Pulse 78 07/19/22 08:41 Resp 18 07/19/22 08:41 BP 159/90 H 07/19/22 08:41 Pulse Ox 99 07/19/22 08:41 O2 Del Method Room Air 07/19/22 08:41 Allergies Allergy/AdvReac Type Severity Reaction Status Date / Time adhesive Allergy Unknown Other Verified 07/19/22 08:38 oxycodone Allergy Unknown Rash Verified 07/19/22 08:38 tramadol Allergy Unknown Rash Verified 07/19/22 08:38 Home Medications Medication Instructions Recorded Confirmed Type albuterol sulfate 90 mcg/actuation 1 inh inhalation Q8H PRN Shortness 03/04/21 07/08/22 History aerosol inhaler Of Breath blood glucose control, normal 03/04/21 03/09/22 History (OneTouch Verio Mid Control solution) blood sugar diagnostic (OneTouch 03/04/21 03/09/22 History Verio test strips) blood-glucose meter (OneTouch 03/04/21 03/09/22 History Verio Flex Meter) calcium carbonate 600 mg calcium 600 mg PO BID PRN Heartburn 03/04/21 07/08/22 History (1,500 mg) tablet hydrochlorothiazide 25 mg tablet 25 mg PO DAILY 03/04/21 07/08/22 History insulin lispro 100 unit/mL 6 unit subcut TID 03/04/21 07/08/22 History subcutaneous solution (Humalog U-100 Insulin) insulin syringe,safetyneedle 1 mL 03/04/21 03/09/22 History 30 gauge x 5/16 insulin syringe-needle U-100 0.5 03/04/21 03/09/22 History mL 31 gauge x 5/16 (TRUEplus Insulin) insulin syringe-needle U-100 1 mL 03/04/21 03/09/22 History 31 gauge x 15/64 (BD Veo Insulin Syringe Ultra-Fine) lancets (Microlet Lancet) 03/04/21 03/09/22 History lancets 33 gauge (OneTouch Delica 03/04/21 03/09/22 History Lancets) lisinopril 40 mg tablet 40 mg PO DAILY 03/04/21 07/08/22 History loratadine 10 mg tablet 10 mg PO DAILY 03/04/21 07/08/22 History multivitamin (Daily-Sushma tablet) 1 tablet PO DAILY 03/04/21 07/08/22 History pen needle, diabetic 31 gauge x 03/04/21 03/09/22 History 5/16 (BD Ultra-Fine Short Pen Needle) atorvastatin 80 mg tablet 80 mg PO DAILY 03/04/22 07/08/22 History escitalopram oxalate 10 mg tablet 10 mg PO DAILY 03/04/22 07/08/22 History folic acid 1 mg tablet 1 mg PO DAILY 03/04/22 07/08/22 History glimepiride 2 mg tablet 2 mg PO BID 03/04/22 07/08/22 History labetalol 100 mg tablet 100 mg PO BID 03/04/22 07/08/22 History duloxetine 30 mg capsule,delayed 30 mg PO DAILY 03/08/22 07/08/22 History release insulin glargine 100 unit/mL (3 42 unit subcut HS 03/08/22 07/08/22 History mL) subcutaneous pen (Basaglar KwikPen U-100 Insulin) nifedipine 90 mg tablet,extended 90 mg PO DAILY 03/08/22 07/08/22 History release pantoprazole 40 mg tablet,delayed 40 mg PO QAM 30 days #30 tabs 03/10/22 07/08/22 Rx release liraglutide 0.6 mg/0.1 mL (18 mg/3 1.2 mg subcut DAILY 07/08/22 07/08/22 History mL) subcutaneous pen injector (Victoza 2-Po) Patient hx anesthesia problems: none Family hx anesthesia problems: none Results Review: All pre-operative results and documents have been reviewed as part of the pre-operative evaluation. [facility] Past Medical History Medical History Alcohol abuse Anxiety Arthritis CAD (coronary artery disease) Cardiomyopathy Colon polyp COPD (chronic obstructive pulmonary disease) Depression Diabetes Diabetes type 2, controlled Hyperlipidemia Hypertension Seizures Surgical History Surgical History H/O foot surgery H/O lumpectomy (~2017) Family History Family History (Reviewed 07/19/22 @ 08:51
[2022-07-19 08:58] LABS: Glucose Point of Care 165 mg/dl (65-105)
--- NOTE | 2022-07-19 09:13 | PM.HPGS ---
History of Present Illness History of Present Illness Consent: Risks, benefits, and alternatives have been discussed and questions answered. Patient agrees to proceed with procedure. Chief complaint: neoplasm screening, hx of colon polyps Narrative: Elizabeth Clark is a 56 year old female with colon polyp 3 years ago Review of Systems Constitutional: Constitutional: Denies headache(s) and Denies weakness Eyes: Eyes: Denies blurry vision ENT: Reports Normal hearing present, Denies headache(s) and Denies neck pain Cardiovascular: Cardiovascular: Denies chest pain and Denies dyspnea Respiratory: Respiratory: Denies dyspnea Gastrointestinal: Gastrointestinal: Reports no additional gastrointestinal complaints Genitourinary: Genitourinary: Denies dysuria Musculoskeletal: Musculoskeletal: Denies neck pain Integumentary/Breasts: Skin/Breast: Denies dry skin Neurologic: Reports Normal hearing present, Denies headache(s) and Denies weakness Psychiatric: Psychiatric: Denies anxiety Endocrine: Endocrine: Denies change in body appearance Hematologic/Lymphatic: Hematologic/Lymphatic: Denies easy bleeding Allergic/Immunologic: Allergic/Immunologic: Denies urticaria PMFSH Past Medical History Medical History Alcohol abuse Anxiety Arthritis CAD (coronary artery disease) Cardiomyopathy Colon polyp COPD (chronic obstructive pulmonary disease) Depression Diabetes Diabetes type 2, controlled Hyperlipidemia Hypertension Seizures Surgical History Surgical History H/O foot surgery H/O lumpectomy (~2017) Family History Family History Other Diabetes mellitus Hypertension Social History Social History Social History: current smoker Years smoked: 40 Smoking status: Current every day smoker Tobacco type: cigarettes Alcohol intake: current Drinks per week: 9 Substance use: never Substance use type: does not use Living arrangements: with family Spiritual care concerns: No Meds Home Medications and Allergies Home Medications Medication Instructions Recorded Confirmed Type albuterol sulfate 90 mcg/actuation 1 inh inhalation Q8H PRN Shortness 03/04/21 07/08/22 History aerosol inhaler Of Breath blood glucose control, normal 03/04/21 03/09/22 History (OneTouch Verio Mid Control solution) blood sugar diagnostic (OneTouch 03/04/21 03/09/22 History Verio test strips) blood[facility]glucose meter ([facility] 03/04/21 03/09/22 History Verio Flex Meter) calcium carbonate 600 mg calcium 600 mg PO BID PRN Heartburn 03/04/21 07/08/22 History (1,500 mg) tablet hydrochlorothiazide 25 mg tablet 25 mg PO DAILY 03/04/21 07/08/22 History insulin lispro 100 unit/mL 6 unit subcut TID 03/04/21 07/08/22 History subcutaneous solution (Humalog U-100 Insulin) insulin syringe,safetyneedle 1 mL 03/04/21 03/09/22 History 30 gauge x 5/16 insulin syringe-needle U-100 0.5 03/04/21 03/09/22 History mL 31 gauge x 5/16 (TRUEplus Insulin) insulin syringe-needle U-100 1 mL 03/04/21 03/09/22 History 31 gauge x 15/64 (BD Veo Insulin Syringe Ultra-Fine) lancets (Microlet Lancet) 03/04/21 03/09/22 History lancets 33 gauge ([facility] Delica 03/04/21 03/09/22 History Lancets) lisinopril 40 mg tablet 40 mg PO DAILY 03/04/21 07/08/22 History loratadine 10 mg tablet 10 mg PO DAILY 03/04/21 07/08/22 History multivitamin (Daily-Sushma tablet) 1 tablet PO DAILY 03/04/21 07/08/22 History pen needle, diabetic 31 gauge x 03/04/21 03/09/22 History 5/16 (BD Ultra-Fine Short Pen Needle) atorvastatin 80 mg tablet 80 mg PO DAILY 03/04/22 07/08/22 History escitalopram oxalate 10 mg tablet 10 mg PO DAILY 03/04/22 07/08/22 History folic acid 1 mg tablet 1 mg PO DAILY
[2022-07-19 09:37] VITALS: BP 139/64; PULSE 81; RESP 31; O2SAT 100
[2022-07-19 09:47] VITALS: BP 148/86; PULSE 72; RESP 20; O2SAT 100
[2022-07-19 09:57] VITALS: BP 165/93; PULSE 70; RESP 22; O2SAT 100
[2022-07-19 10:00] LABS: Glucose Point of Care 141 mg/dl (65-105)
== END 2022-07-19 10:07 | disposition home or self-care (01) ==
PROVIDERS: PCP Internal Medicine Infectious Disease; Visit Provider Internal Medicine Gastroenterology
PROC: 0DJD8ZZ Inspection of Lower Intestinal Tract, Via Natural or Artificial Opening Endoscopic (ICD-10-PCS; CPT 45378; principal; 2022-07-19 09:45)
DX: Z12.11 Encounter for screening for malignant neoplasm of colon (principal); D12.2 Benign neoplasm of ascending colon; K64.8 Other hemorrhoids; I25.10 Atherosclerotic heart disease of native coronary artery without angina pectoris; I42.9 Cardiomyopathy, unspecified; J44.9 Chronic obstructive pulmonary disease, unspecified; E11.9 Type 2 diabetes mellitus without complications; E78.5 Hyperlipidemia, unspecified; I10 Essential (primary) hypertension; F41.9 Anxiety disorder, unspecified; F32.A Depression, unspecified; F17.210 Nicotine dependence, cigarettes, uncomplicated; Z79.51 Long term (current) use of inhaled steroids; Z79.4 Long term (current) use of insulin; Z79.84 Long term (current) use of oral hypoglycemic drugs; Z79.899 Other long term (current) drug therapy
CPT/HCPCS: 45385; 82948; 88305; J2704; J7120

== ENCOUNTER 2022-12-10 12:15 | Emergency (ER) | payer OTHER, SELFPAY ==
[2022-12-10] VITALS (8 sets, daily range): BP systolic 143–199; BP diastolic 80–106; PULSE 75–85; RESP 14–22; TEMP 36.7; O2SAT 100
--- NOTE | ~2022-12-10 | XR_ITS ---
EXAMINATION: XR chest 2V DATE: 12/10/2022 13:20 INDICATION: Chest tightness, hypertension TECHNIQUE: PA and lateral views of the chest are obtained. COMPARISON: 03/08/2022 FINDINGS: The lungs are free of acute opacities. No pleural effusion or pneumothorax. The cardiomedia stinal silhouette is normal. There is mild thoracic spondylosis. IMPRESSION: 1. No acute cardiopulmonary abnormality. Reviewed, dictated and finalized at location B.
--- NOTE | 2022-12-10 13:04 | ECG_ITS ---
Measurements Intervals [place] Rate: 72 P: 59 CT: 136 QRS: 40 QRSD: 76 T: 236 QT: 422 QTc: 462 Interpretive Statements SINUS RHYTHM POSSIBLE LEFT ATRIAL ENLARGEMENT LEFT VENTRICULAR HYPERTROPHY AND ST-T CHANGE ST-T WAVE ABNORMALITY IN INFERIOR LEADS- CONSIDER ISCHEMIA ABNORMAL ECG COMPARED TO ECG 03/08/2022 16:14:12 ST-T WAVE ABNORMALITY NOW PRESENT Electronically Signed On 12-10-2022 13:42:14 CDT by Yonis Byrd D.O.
[2022-12-10 13:30] LABS: Basophils Percent Auto 0.5 % (0.2-1.2); Eosinophils Absolute Auto 0.1 K/mm3 (0-0.3); Eosinophils Percent Auto 0.9 % (0-4.4); Hematocrit 37.8 % (37.0-47.0); Hemoglobin 12.3 g/dL (12.0-15.0); Immature Granulocyte Absolute 0.01 K/mm3 (0.00-0.031); Immature Granulocyte Percent A 0.2 % (0-0.5); Lymphocytes Absolute Auto 2.94 K/mm3 (0.9-3.2); Lymphocytes Percent Auto 51.3 % (18.3-44.2); Mean Corpuscular HGB Conc 32.5 g/dl (32-36); Mean Corpuscular Hemoglobin 31.7 pg (26-34); Mean Corpuscular Volume 97.4 fl (80-100); Monocytes Absolute Auto 0.5 K/mm3 (0.1-0.6); Monocytes Percent Auto 8.4 % (2.6-8.5); Neutrophils Absolute Auto 2.2 K/mm3 (1.3-6.7); Neutrophils Percent Auto 38.7 % (45.5-73.1); Platelet Count Result 228 k/mm3 (150-375); Red Blood Count 3.88 M/mm3 (4.2-5.4); Red Cell Distribution Width 12.5 % (11.5-14.5); White Blood Count 5.7 K/mm3 (4.5-10.0)
[2022-12-10 13:34] LABS: Alanine Aminotransferase 18 U/L (6-35); Albumin Level 4.5 g/dL (3.5-5.1); Alkaline Phosphatase 65 U/L (38-126); Anion Gap 8 mmol/L (8-16); Aspartate Amino Transferase 18 U/L (14-36); Bilirubin,Total 0.5 mg/dL (0.2-1.3); Blood Urea Nitrogen 14 mg/dL (7-17); Calcium 9.3 mg/dL (8.4-10.2); Carbon Dioxide 24 mmol/L (22-30); Chloride 108 mmol/L (98-107); Estimated CRCL calculation 110 ml/min; Estimated Glomerular Filt Rate > 60; Glucose 174 mg/dL (65-110); Potassium 4.2 mmol/L (3.4-5.0); Sodium 140 mmol/L (137-145)
[2022-12-10 13:45] LABS: Troponin I < 0.012 ng/mL (0.000-0.034)
[2022-12-10 15:17] LABS: Prothrombin Time 12.6 Seconds (11.1-14.7)
[2022-12-10 15:18] LABS: Partial Thromboplastin Time 36.1 SECONDS (22.3-36.8)
--- NOTE | 2022-12-10 15:31 | ED.GENADULT ---
HPI - General Adult General Chief complaint: Recheck/Abnormal Lab/Rx Stated complaint: HTN-sent by PCP Time Seen by Provider: 12/10/22 14:36 Source: patient and family Mode of arrival: ambulatory Limitations: no limitations History of Present Illness HPI narrative: 57-year-old with a history of hypertension, diabetes, hyperlipidemia, asthma here with complaints of elevated blood pressure. Patient states that she was at the doctor's office when was found to have high blood pressure. Patient states that she has not taken her medication for last 2 days. She presently denies having any headache or chest pain or shortness of breath or blurred vision. Onset (ago): day(s) (1) Exacerbating factors: none Associated symptoms: denies other symptoms Related Data Home Medications Medication Instructions Recorded Confirmed albuterol sulfate 90 mcg/actuation 1 inh inhalation Q8H PRN Shortness 03/04/21 07/08/22 aerosol inhaler Of Breath blood glucose control, normal 03/04/21 03/09/22 ([employer] Verio Mid Control solution) blood sugar diagnostic ([employer] 03/04/21 03/09/22 Verio test strips) blood-glucose meter ([employer] 03/04/21 03/09/22 Verio Flex Meter) calcium carbonate 600 mg calcium 600 mg PO BID PRN Heartburn 03/04/21 07/08/22 (1,500 mg) tablet hydrochlorothiazide 25 mg tablet 25 mg PO DAILY 03/04/21 07/08/22 insulin lispro 100 unit/mL 6 unit subcut TID 03/04/21 07/08/22 subcutaneous solution (Humalog U-100 Insulin) insulin syringe,safetyneedle 1 mL 03/04/21 03/09/22 30 gauge x 5/16 insulin syringe-needle U-100 0.5 03/04/21 03/09/22 mL 31 gauge x 5/16 (TRUEplus Insulin) insulin syringe-needle U-100 1 mL 03/04/21 03/09/22 31 gauge x 15/64 (BD Veo Insulin Syringe Ultra-Fine) lancets (Microlet Lancet) 03/04/21 03/09/22 lancets 33 gauge (OneTouch Delica 03/04/21 03/09/22 Lancets) lisinopril 40 mg tablet 40 mg PO DAILY 03/04/21 07/08/22 loratadine 10 mg tablet 10 mg PO DAILY 03/04/21 07/08/22 multivitamin (Daily-Sushma tablet) 1 tablet PO DAILY 03/04/21 07/08/22 pen needle, diabetic 31 gauge x 03/04/21 03/09/2202/01 (BD Ultra-Fine Short Pen Needle) atorvastatin 80 mg tablet 80 mg PO DAILY 03/04/22 07/08/22 escitalopram oxalate 10 mg tablet 10 mg PO DAILY 03/04/22 07/08/22 folic acid 1 mg tablet 1 mg PO DAILY 03/04/22 07/08/22 glimepiride 2 mg tablet 2 mg PO BID 03/04/22 07/08/22 labetalol 100 mg tablet 100 mg PO BID 03/04/22 07/08/22 duloxetine 30 mg capsule,delayed 30 mg PO DAILY 03/08/22 07/08/22 release insulin glargine 100 unit/mL (3 42 unit subcut HS 03/08/22 07/08/22 mL) subcutaneous pen (Basaglar KwikPen U-100 Insulin) nifedipine 90 mg tablet,extended 90 mg PO DAILY 03/08/22 07/08/22 release liraglutide 0.6 mg/0.1 mL (18 mg/3 1.2 mg subcut DAILY 07/08/22 07/08/22 mL) subcutaneous pen injector (Victoza 2-Po) Allergies Allergy/AdvReac Type Severity Reaction Status Date / Time adhesive Allergy Unknown Other Verified 07/19/22 08:38 oxycodone Allergy Unknown Rash Verified 07/19/22 08:38 tramadol Allergy Unknown Rash Verified 07/19/22 08:38 Review of Systems Review of Systems: All systems reviewed & are unremarkable except as noted in HPI and below Constitutional: Constitutional: Reports no additional constitutional complaints Eyes: Eyes: Reports no additional eye complaints ENT: Reports system reviewed and no additional complaints, except as documented Cardiovascular: Cardiovascular: Reports no additional cardiovascular complaints Respiratory: Respiratory: Reports no additional respiratory complaints Gastrointestinal: Gastrointestinal: Reports no additional gastrointestinal complaints Genitourinary: Genitourinary: Reports no additional female genitourinary complaints Musculoskeletal: Musculoskeletal: Reports no additional musculoskeletal complaints PMFSH Past Medical History Medical History
== END 2022-12-10 16:30 | disposition home or self-care (01) ==
PROVIDERS: Emergency Medicine; Emergency Provider Family Medicine; PCP Internal Medicine Infectious Disease
DX: I10 Essential (primary) hypertension (principal); I25.10 Atherosclerotic heart disease of native coronary artery without angina pectoris; I42.9 Cardiomyopathy, unspecified; E11.9 Type 2 diabetes mellitus without complications; E78.5 Hyperlipidemia, unspecified; J44.9 Chronic obstructive pulmonary disease, unspecified; M19.90 Unspecified osteoarthritis, unspecified site; F41.9 Anxiety disorder, unspecified; F32.A Depression, unspecified; F17.210 Nicotine dependence, cigarettes, uncomplicated; Z79.4 Long term (current) use of insulin; Z79.85 Long-term (current) use of injectable non-insulin antidiabetic drugs; I51.7 Cardiomegaly; R94.31 Abnormal electrocardiogram [ECG] [EKG]
CPT/HCPCS: 36415; 71046; 80053; 84484; 85025; 85610; 85730; 93005; 99284

== ENCOUNTER 2023-01-03 10:12 | Outpatient (CLI) | payer OTHER, SELFPAY ==
--- NOTE | ~2023-01-03 | US_ITS ---
Right axillary ultrasound CLINICAL HISTORY: Mass TECHNIQUE: Real-time sonographic imaging performed of the right axilla. FINDINGS: No abnormal mass lesion or fluid collection seen. No abnormal lymph nodes identified. IMPRESSION: No significant abnormality identified. Reviewed, dictated and finalized at [facility].
== END 2023-01-03 10:13 | disposition home or self-care (01) ==
PROVIDERS: PCP Internal Medicine Infectious Disease; Visit Provider Physician Assistant
DX: R22.9 Localized swelling, mass and lump, unspecified (principal)
CPT/HCPCS: 76882

== ENCOUNTER 2023-02-16 07:47 | Outpatient (CLI) | payer OTHER, SELFPAY ==
--- NOTE | ~2023-02-16 | MM_ITS ---
EXAMINATION: MM screening ron BI w acrol HISTORY: Screening mammogram TECHNIQUE: Craniocaudal and mediolateral oblique 3-D tomosynthesis images were obtained and synthetic 2-D images were generated. CAD analysis was submitted and interpreted. COMPARISON: No prior mammogram is available for comparison at this institution. BREAST PARENCHYMAL COMPOSITION: The breasts are heterogeneously dense, which may obscure small masses . FINDINGS: There is no evidence of suspicious mass, calcification, or architectural distortion to sugg est malignancy in either breast. There has been no suspicious interval change. IMPRESSION: 1. No mammographic evidence of malignancy. 2. Recommend routine screening mammography in one year. BI-RADS Category 1: Negative Reviewed, dictated and finalized at location A.
== END 2023-02-16 07:48 | disposition home or self-care (01) ==
LOC: ANHIMG 07:50
PROVIDERS: PCP Internal Medicine Infectious Disease; Visit Provider Physician Assistant
DX: Z12.31 Encounter for screening mammogram for malignant neoplasm of breast (principal)
CPT/HCPCS: 77063; 77067

== ENCOUNTER 2023-02-16 08:17 | Inpatient (IN) | payer OTHER, SELFPAY ==
[2023-02-16] VITALS (52 sets, daily range): BP systolic 107–218; BP diastolic 65–106; PULSE 66–101; RESP 11–27; TEMP 36.5–37; O2SAT 93–100
--- NOTE | ~2023-02-16 | CT_ITS ---
EXAMINATION: CTA chest PE protocol DATE: 02/16/2023 09:16 INDICATION: Pleuritic chest pain. TECHNIQUE: Computed tomography angiography (CTA) of the chest was performed with 100 mL Omnipaque-350 intravenous contrast timed to evaluate the pulmonary arteries. Coronal maximum intensity projection 3D-reconstructions were created by the technologist. Automated exposure control and iterative reconst ruction technique were employed. The dose-length product was 298.78 mGy-cm. COMPARISON: CT abdomen and pelvis 03/08/2022 FINDINGS: The lungs demonstrate minimal atelectasis. A calcified left lung nodule and calcified left hilar lymph nodes are consistent with old adenomatous disease. No pleural effusion. The heart size is normal. No pericardial effusion. There is no pulmonary embolus. Calcifications in the spleen are con sistent with old granulomatous disease. There is mild thoracic spondylosis. There is mild chronic ant erior wedging of T7-T9 vertebral bodies. IMPRESSION: 1. No pulmonary embolus. Reviewed, dictated and finalized at location A. IMPRESSION: 1. No pulmonary embolus.
--- NOTE | ~2023-02-16 | XR_ITS ---
EXAMINATION: XR chest 2V DATE: 02/16/2023 09:19 INDICATION: Right-sided chest pain TECHNIQUE: PA and lateral views of the chest were obtained. COMPARISON: Chest radiograph dated 12/10/2022 FINDINGS: Calcified left lower lobe nodule and calcified left hilar lymph nodes consistent with old granulomato us disease. The cardiomediastinal silhouette is normal. Minimal anterior wedging of a few mid thoraci c vertebral bodies. IMPRESSION: 1. No acute cardiopulmonary disease. Reviewed, dictated and finalized at location B.
--- NOTE | 2023-02-16 08:22 | ECG_ITS ---
Measurements Intervals [place] Rate: 82 P: 67 [place]: 132 QRS: 50 QRSD: 79 T: 268 QT: 390 QTc: 458 Interpretive Statements SINUS RHYTHM POSSIBLE LEFT ATRIAL ENLARGEMENT POSSIBLE LEFT VENTRICULAR HYPERTROPHY ST-T WAVE ABNORMALITY IN INFERIOR LEADS- CONSIDER ISCHEMIA BASELINE ARTIFACT- I, III, AVR, AVL ABNORMAL ECG COMPARED TO ECG 12/10/2022 13:08:26 NO SIGNIFICANT CHANGES Electronically Signed On 02-16-2023 8:27:24 CDT by Yonis Byrd D.O.
[2023-02-16 08:39] LABS: Basophils Percent Auto 0.6 % (0.2-1.2); Eosinophils Absolute Auto 0.1 K/mm3 (0-0.3); Eosinophils Percent Auto 1.7 % (0-4.4); Hematocrit 37.1 % (37.0-47.0); Hemoglobin 12.2 g/dL (12.0-15.0); Immature Granulocyte Absolute 0.01 K/mm3 (0.00-0.031); Immature Granulocyte Percent A 0.2 % (0-0.5); Lymphocytes Absolute Auto 2.48 K/mm3 (0.9-3.2); Lymphocytes Percent Auto 52.1 % (18.3-44.2); Mean Corpuscular HGB Conc 32.9 g/dl (32-36); Mean Corpuscular Hemoglobin 31.6 pg (26-34); Mean Corpuscular Volume 96.1 fl (80-100); Mean Platelet Volume 10.3 fl (7.4-10.4); Monocytes Absolute Auto 0.4 K/mm3 (0.1-0.6); Neutrophils Absolute Auto 1.7 K/mm3 (1.3-6.7); Neutrophils Percent Auto 36.4 % (45.5-73.1); Platelet Count Result 244 k/mm3 (150-375); Red Blood Count 3.86 M/mm3 (4.2-5.4); Red Cell Distribution Width 12.8 % (11.5-14.5); White Blood Count 4.8 K/mm3 (4.5-10.0)
[2023-02-16 08:52] LABS: Alanine Aminotransferase 17 U/L (6-35); Albumin Level 4.7 g/dL (3.5-5.1); Alkaline Phosphatase 64 U/L (38-126); Anion Gap 9 mmol/L (8-16); Aspartate Amino Transferase 21 U/L (14-36); Bilirubin,Total 0.4 mg/dL (0.2-1.3); Blood Urea Nitrogen 16 mg/dL (7-17); Calcium 8.9 mg/dL (8.4-10.2); Carbon Dioxide 25 mmol/L (22-30); Chloride 107 mmol/L (98-107); Estimated CRCL calculation 104 ml/min; Estimated Glomerular Filt Rate > 60; Glucose 248 mg/dL (65-110); Potassium 4.3 mmol/L (3.4-5.0); Sodium 141 mmol/L (137-145)
[2023-02-16] MEDS: MORPHINE SULFATE (*CRX) 4 MG/ML INJ IV PUSH (09:23)
[2023-02-16] MEDS: hydrALAZINE HCL 20 MG/ML VIAL 10 MG IV PUSH (09:23)
[2023-02-16 09:25] LABS: INR 0.9; Prothrombin Time 12.7 Seconds (11.1-14.7)
[2023-02-16 09:26] LABS: Partial Thromboplastin Time 34.3 SECONDS (22.3-36.8)
[2023-02-16 09:34] LABS: Troponin I < 0.012 ng/mL (0.000-0.034)
[2023-02-16 09:43] LABS: NT Pro B Type Natriuretic Pept 53 pg/mL (19.9-100)
[2023-02-16] MEDS: IPRATROPIUM BR 0.02% INH SOLN 0.5 MG/2.5 ML VIAL INHALATION (10:03)
[2023-02-16] MEDS: ALBUTEROL SULFATE NEB 2.5 MG/3 ML INH INHALATION (10:03)
[2023-02-16] MEDS: HYDROmorphone HCL INJ (*CRX) 1 MG/ML SYR IV PUSH (11:35)
--- NOTE | 2023-02-16 12:01 | ED.GENADULT ---
HPI - General Adult General Chief complaint: Shortness of Breath/Dyspnea Stated complaint: shortness of breath Time Seen by Provider: 02/16/23 08:47 History of Present Illness HPI narrative: Is a 57-year-old female who presents the emergency department with chief complaint of chest pain and shortness of breath. Patient reports she has history of breast cancer that was treated with a mastectomy the patient states that she also has history of hypertension and reports that today she started having pain in the right side of her chest the patient reports that is reproducible and worse with inspiration but is making her short of breath because of the pain. The patient reports no trauma denies fever denies cough. Patient reports no prior history of cardiac disease but does report that she has history of hypertension hyperlipidemia and diabetes. Related Data Home Medications Medication Instructions Recorded Confirmed albuterol sulfate 90 mcg/actuation 1 inh inhalation Q8H PRN Shortness 03/04/21 07/08/22 aerosol inhaler Of Breath blood glucose control, normal 03/04/21 03/09/22 (DNA Guide Verio Mid Control solution) blood sugar diagnostic (DNA Guide 03/04/21 03/09/22 Verio test strips) blood-glucose meter (DNA Guide 03/04/21 03/09/22 Verio Flex Meter) calcium carbonate 600 mg calcium 600 mg PO BID PRN Heartburn 03/04/21 07/08/22 (1,500 mg) tablet hydrochlorothiazide 25 mg tablet 25 mg PO DAILY 03/04/21 07/08/22 insulin lispro 100 unit/mL 6 unit subcut TID 03/04/21 07/08/22 subcutaneous solution (Humalog U-100 Insulin) insulin syringe,safetyneedle 1 mL 03/04/21 03/09/22 30 gauge x 5/16 insulin syringe-needle U-100 0.5 03/04/21 03/09/22 mL 31 gauge x 5/16 (TRUEplus Insulin) insulin syringe-needle U-100 1 mL 03/04/21 03/09/22 31 gauge x 15/64 (BD Veo Insulin Syringe Ultra-Fine) lancets (Microlet Lancet) 03/04/21 03/09/22 lancets 33 gauge (OneTouch Delica 03/04/21 03/09/22 Lancets) lisinopril 40 mg tablet 40 mg PO DAILY 03/04/21 07/08/22 loratadine 10 mg tablet 10 mg PO DAILY 03/04/21 07/08/22 multivitamin (Daily-Sushma tablet) 1 tablet PO DAILY 03/04/21 07/08/22 pen needle, diabetic 31 gauge x 03/04/21 03/09/2202/01 (BD Ultra-Fine Short Pen Needle) atorvastatin 80 mg tablet 80 mg PO DAILY 03/04/22 07/08/22 escitalopram oxalate 10 mg tablet 10 mg PO DAILY 03/04/22 07/08/22 folic acid 1 mg tablet 1 mg PO DAILY 03/04/22 07/08/22 glimepiride 2 mg tablet 2 mg PO BID 03/04/22 07/08/22 labetalol 100 mg tablet 100 mg PO BID 03/04/22 07/08/22 duloxetine 30 mg capsule,delayed 30 mg PO DAILY 03/08/22 07/08/22 release insulin glargine 100 unit/mL (3 42 unit subcut HS 03/08/22 07/08/22 mL) subcutaneous pen (Basaglar KwikPen U-100 Insulin) nifedipine 90 mg tablet,extended 90 mg PO DAILY 03/08/22 07/08/22 release liraglutide 0.6 mg/0.1 mL (18 mg/3 1.2 mg subcut DAILY 07/08/22 07/08/22 mL) subcutaneous pen injector (Victoza 2-Po) Allergies Allergy/AdvReac Type Severity Reaction Status Date / Time adhesive Allergy Unknown Other Verified 02/16/23 08:17 oxycodone Allergy Unknown Rash Verified 02/16/23 08:17 tramadol Allergy Unknown Rash Verified 02/16/23 08:17 hydromorphone [From Dilaudid] Allergy Itching Verified 02/16/23 12:25 Review of Systems Review of Systems: A 10 system review of systems was completed on the patient and is negative except for what is stated in the HPI. Nursing and ancillary documentation was reviewed. [facility] Past Medical History Medical History Alcohol abuse Anxiety Arthritis CAD (coronary artery disease) Cardiomyopathy Colon polyp COPD (chronic obstructive pulmonary disease) Depression Diabetes Diabetes type 2, controlled Hyperlipidemia Hypertension Seizures Surgical History Surgical History H/O foot surgery H/O
[2023-02-16 12:18] LABS: Troponin I < 0.012 ng/mL (0.000-0.034)
--- NOTE | 2023-02-16 12:25 | PC.NURSE ---
Patient reported itching to Edson Green RN. EDP made aware. Waiting for orders.
[2023-02-16] MEDS: diphenhydrAMINE HCl INJ 50 MG/ML VIAL 25 MG IV PUSH (12:33)
--- NOTE | 2023-02-16 15:27 | ADMGEN ---
This patient, Elizabeth Clark, was admitted to IMU Room 214-01. Patient/family oriented to hospital policies and general routines including ID bracelet, bed and alarms, visiting hours, pain management, procedures, bathroom and other care routines, personal items, smoking policy, room service/diet, and visiting hours. Information on how to activate the Rapid Response Team has been discussed. Patient/Family are encouraged to report perceived risks to care and to ask questions if they do not understand what they are told or what they should do.
[2023-02-16 16:28] LABS: Troponin I < 0.012 ng/mL (0.000-0.034)
--- NOTE | 2023-02-16 17:47 | PC.NURSE ---
[facility] pharmacy in [place] called, medication list verified. Pt reports no longer using clonidine patch per cloth mercerizer back tender.
[2023-02-16] MEDS: ACETAMINOPHEN 325 MG TABLET 650 MG PO (18:15)
--- NOTE | 2023-02-16 18:22 | PC.NURSE ---
Pt reports chest pain 04/28. ISIDRO Pierce notified. New orders noted for Tylenol 650 mg.
--- NOTE | 2023-02-16 19:55 | ECG_ITS ---
Measurements Intervals [place] Rate: 68 P: 43 [place]: 121 QRS: 54 QRSD: 75 T: 261 QT: 417 QTc: 445 Interpretive Statements SINUS RHYTHM LEFT VENTRICULAR HYPERTROPHY AND ST-T CHANGE [VOLTAGE CRITERIA PLUS ST/T ABNORMALITY] COMPARED TO ECG 02/16/2023 08:25:50 NO SIGNIFICANT CHANGES Electronically Signed On 02-17-2023 15:25:28 CDT by Flako Rajput M.D.
--- NOTE | 2023-02-16 20:27 | PM.IMHP ---
H&P: HPI History of Present Illness Date/Time: 02/16/23 20:00 Chief Complaint: Right-sided chest pain. Narrative: This is a very pleasant 57-year-old female with hypertension, hyperlipidemia, and insulin-dependent type 2 diabetes mellitus who presented to the emergency department for evaluation of right-sided chest pain. Last weekend she was with her family at a [place] in [facility] and she received several bug bites to her right upper extremity which cause swelling and pruritus. She was given a steroid cream which significantly improved her symptoms. However since that time she developed right anterior chest pain which radiates under the right axilla and to the back. The pain is worse with cough, deep inspiration, movement, and palpation. She has taken ibuprofen and Gas-X at home without much relief. Associated symptoms include a cough which is occasionally productive of cream-colored sputum and some mild nausea. She denies syncope, near syncope, chest pain, significant shortness of breath, vomiting, lower extremity edema, and calf pain. She has not had any recent falls or trauma and she denies recent exercise routines or heavy lifting. No fever, chills, sweats, sinus congestion, sore throat, or sick contacts. She denies history of gallbladder disease, peptic ulcer disease, and pancreatitis. Blood pressures have been elevated in the 140s to 160 systolic since arrival but her remaining vital signs have been stable. CMP and CMP were unremarkable and her troponins have thus far been negative. Chest CTA showed no evidence of pulmonary embolus. EKG showed sinus rhythm with ST T-wave abnormalities in inferior leads, not significantly changed when compared to previous tracing from November 2022. Given her comorbidities she is being admitted for close monitoring. At the time of my evaluation she continues to have reproducible chest pain but she has no other complaints. Review of Systems Review of Systems: Twelve systems were reviewed and are negative except for as per HPI. [facility] Past Medical History Medical History Alcohol abuse Anxiety Arthritis CAD (coronary artery disease) Cardiomyopathy Colon polyp COPD (chronic obstructive pulmonary disease) Depression Hyperlipidemia Hypertension Insulin dependent type 2 diabetes mellitus Seizures Surgical History Surgical History H/O foot surgery H/O lumpectomy (~2017) Family History Family History Other Diabetes mellitus Hypertension Social History Social History (Updated 02/16/23 @ 23:27 by Kari Burden PA-C) Social History: Code status: Full code. Years smoked: 40 Smoking status: Current every day smoker Tobacco type: cigarettes Alcohol intake: current Drinks per week: 9 Substance use: never Substance use type: does not use Lack of Transportation: No Lack of Food: Often True Current Housing: I Have Housing Concerned About Future Housing: No Difficulty Paying Gas/Electric Bills: No Difficulty Paying for Meds: YES Currently Unemployed: No Education: High School Diploma/GED Difficulty w/ Childcare or Family Care: No Living arrangements: with family Spiritual care concerns: No Meds Home Medications and Allergies Home Medications Medication Instructions Recorded Confirmed Type albuterol sulfate 90 mcg/actuation 2 inh inhalation Q4H PRN Shortness 03/04/21 02/16/23 History aerosol inhaler Of Breath hydrochlorothiazide 25 mg tablet 25 mg PO DAILY 03/04/21 02/16/23 History insulin lispro 100 unit/mL 6 unit subcut TID 03/04/21 02/16/23 History subcutaneous solution (Humalog U-100 Insulin) lisinopril 40 mg tablet 40 mg PO DAILY 03/04/21 02/16/23 History multivitamin (Daily-Sushma tablet) 1 tablet PO DAILY 03/04/21 02/16/23 History glimepiride 2
--- NOTE | 2023-02-16 20:37 | PC.NURSE ---
Spoke with Kari LEIGH regarding ST changes on departmental buyer and new EKG. Kari LEIGH evaluated EKG and ordered tordol for continued chest pain.
[2023-02-16] MEDS: KETOROLAC 15 MG/ML VIAL (*BKC) IV PUSH (21:40)
[2023-02-17] VITALS (17 sets, daily range): BP systolic 87–155; BP diastolic 55–93; PULSE 66–87; RESP 18–20; TEMP 35.5–36.6; O2SAT 96–100
[2023-02-17 00:12] LABS: Glucose Point of Care 249 mg/dl (65-105)
[2023-02-17] MEDS: carvediloL 12.5 MG TABLET PO ×3 (00:18→20:58)
[2023-02-17] MEDS: lamoTRIgine 50 MG TABLET PO ×3 (00:21→20:58)
[2023-02-17] MEDS: DULoxetine HCL 20 MG CAPSULE.DR 40 MG PO ×2 (00:26→20:58)
[2023-02-17] MEDS: diphenhydrAMINE HCl CAP 25 MG CAPSULE PO (00:32)
[2023-02-17] MEDS: INSULIN GLARGINE (*BKC) 100 UNITS/ML 42 UNITS SUB-Q ×2 (00:32→20:58)
[2023-02-17 04:54] LABS: Hematocrit 37.3 % (37.0-47.0); Hemoglobin 12.3 g/dL (12.0-15.0); Mean Corpuscular Hemoglobin 31.3 pg (26-34); Mean Corpuscular Volume 94.9 fl (80-100); Mean Platelet Volume 10.1 fl (7.4-10.4); Platelet Count Result 257 k/mm3 (150-375); Red Blood Count 3.93 M/mm3 (4.2-5.4); Red Cell Distribution Width 12.5 % (11.5-14.5); White Blood Count 5.4 K/mm3 (4.5-10.0)
[2023-02-17 05:05] LABS: Alanine Aminotransferase 17 U/L (6-35); Albumin Level 4.3 g/dL (3.5-5.1); Alkaline Phosphatase 55 U/L (38-126); Anion Gap 7 mmol/L (8-16); Aspartate Amino Transferase 24 U/L (14-36); Bilirubin,Total 0.5 mg/dL (0.2-1.3); Blood Urea Nitrogen 14 mg/dL (7-17); Calcium 9.1 mg/dL (8.4-10.2); Carbon Dioxide 26 mmol/L (22-30); Chloride 106 mmol/L (98-107); Estimated CRCL calculation 104 ml/min; Estimated Glomerular Filt Rate > 60; Glucose 137 mg/dL (65-110); Potassium 3.9 mmol/L (3.4-5.0); Sodium 139 mmol/L (137-145)
[2023-02-17 08:13] LABS: Glucose Point of Care 181 mg/dl (65-105)
[2023-02-17] MEDS: GLIMEPIRIDE 2 MG TABLET PO ×2 (09:19→17:21)
[2023-02-17] MEDS: amLODIPine BESYLATE 5 MG TABLET 10 MG PO (09:20)
[2023-02-17] MEDS: EZETIMIBE 10 MG TABLET PO (09:21)
[2023-02-17] MEDS: ENOXAPARIN 40 MG/0.4 ML SYRINGE SUB-Q (09:21)
[2023-02-17] MEDS: SPIRONOLACTONE 25 MG TABLET PO (09:21)
[2023-02-17] MEDS: lisinopriL 20 MG TABLET 40 MG PO (09:22)
[2023-02-17] MEDS: EMPAGLIFLOZIN 10 MG TABLET PO (09:22)
[2023-02-17] MEDS: hydrOXYzine pamoate 25 MG CAPSULE 50 MG PO (09:23)
[2023-02-17] MEDS: MULTIVITAMINS THERAPEUTIC TAB (*BKC) 1 TABLET PO (09:23)
[2023-02-17] MEDS: hydroCHLOROthiazide 25 MG TABLET PO (09:24)
[2023-02-17] MEDS: ASPIRIN 81 MG CHEWABLE TABLET PO (09:27)
[2023-02-17] MEDS: INSULIN ASPART (*BKC) 100 UNITS/ML 6 UNITS SUB-Q (09:27)
[2023-02-17] MEDS: FLUTICASONE PROP 44 MCG (*SP) 10.6 GM 2 PUFF INHALATION ×2 (09:38→20:23)
--- NOTE | 2023-02-17 12:19 | PM.IMPN ---
Progress Note: A&P Assessment and Plan (1) Chest pain: Qualifiers: Chest pain type: unspecified Qualified Code(s): R07.9 - Chest pain, unspecified Code(s): R07.9 - Chest pain, unspecified Status: Acute (2) Insulin dependent type 2 diabetes mellitus: Code(s): E11.9 - Type 2 diabetes mellitus without complications; Z79.4 - residential (current) use of insulin Status: Acute (3) Hypertension: Qualifiers: Hypertension type: unspecified Qualified Code(s): I10 - Essential (primary) hypertension Code(s): I10 - Essential (primary) hypertension Status: Acute Plan right-sided chest pain: She 0 troponin negative reproducible chest pain. CTA with no acute findings. Conservative management. A sitter hypertension improved likely related to pain. Type 2 diabetes on [id number] at 7 Asthma/ COPD not on exacerbation Coronary artery disease History of cardiomyopathy Hyperlipidemia Anxiety/ depression Seizure disorder DVT prophylaxis Lovenox Code status full code Subjective Date/time seen: 02/17/23 12:19 Interval history: feeling better, no nausea, vomiting. chest pain on right side which is better. this is reproducible Review of Systems Review of Systems: All systems reviewed & are unremarkable except as noted in HPI and below Exam Narrative: General: Well-developed, nontoxic-appearing female in the semi-Rice position in bed. HEENT: PERRL, EOMI. Sclera anicteric. Oral mucosa moist. Neck: Supple. Respiratory: Lungs are clear to auscultation bilaterally. No respiratory distress Cardiovascular: Regular rate and rhythm with S1-S2. Chest: Reproducible tenderness to palpation over the right lateral breast. Gastrointestinal: Abdomen is soft, nontender, and nondistended with positive bowel sounds. No guarding rebound tenderness. Negative Ponce sign. Skin: Warm and dry. Right arm does not look significantly swollen. She does have evidence of mosquito bites. No rash noted on the chest wall. Extremities: No cyanosis, clubbing, or edema. Radial and pedal pulses intact. Musculoskeletal: She has tenderness to palpation over the right lateral breast in in the right lateral back below the scapula. Neurological: Alert. Cranial nerves 2-12 are grossly intact. No gross focal deficits to casual conversation. Psychiatric: Appropriate mood and affect. Objective Data Vital Signs Vital Signs: Vital Signs - 24 hr 02/16/23 12:33 02/16/23 12:41 02/16/23 12:45 Temperature Pulse Rate 77 101 H 79 Respiratory Rate 16 17 13 Blood Pressure 145/65 H Pulse Oximetry 98 100 99 Oxygen Delivery 02/16/23 12:46 02/16/23 13:00 02/16/23 13:01 Temperature Pulse Rate 77 89 76 Respiratory Rate 16 16 17 Blood Pressure 166/88 H 107/90 Pulse Oximetry 99 100 100 Oxygen Delivery 02/16/23 13:02 02/16/23 13:15 02/16/23 13:16 Temperature Pulse Rate 73 83 90 Respiratory Rate 11 L 13 19 Blood Pressure 134/74 Pulse Oximetry 99 99 99 Oxygen Delivery 02/16/23 13:37 02/16/23 13:45 02/16/23 13:46 Temperature Pulse Rate 77 89 81 Respiratory Rate 16 13 14 Blood Pressure 141/84 H Pulse Oximetry 100 98 100 Oxygen Delivery 02/16/23 14:00 02/16/23 14:01 02/16/23 14:15 Temperature Pulse Rate 96 98 88 Respiratory Rate 15 17 18 Blood Pressure 186/92 H Pulse Oximetry 100 Oxygen Delivery 02/16/23 14:16 02/16/23 14:30 02/16/23 14:31 Temperature Pulse Rate 89 89 90 Respiratory Rate 18 16 16 Blood Pressure 172/92 H 155/86 H Pulse Oximetry 100 100 100 Oxygen Delivery 02/16/23 14:49 02/16/23 15:05 02/16/23 16:00 Temperature 97.9 F Pulse Rate 97 81 69 Respiratory Rate 27 H 13 18 Blood Pressure 165/84 H Pulse Oximetry 100 100 100 Oxygen Delivery 02/16/23 16:00 02/16/23 18:00 02/16/23 20:00 Temperature 97.9 F Pulse Rate 76 71 74 Respiratory Rate 20 Blood Pressure 147/80 H Pulse Oxi
[2023-02-17 13:00] LABS: Glucose Point of Care 165 mg/dl (65-105)
[2023-02-17] MEDS: DICLOFENAC SOD 75 MG TABLET.EC PO (17:21)
[2023-02-17 19:43] LABS: Glucose Point of Care 186 mg/dl (65-105)
--- NOTE | 2023-02-17 20:48 | PC.NURSE ---
Pt transferred from IMU to 2nd Medical Room 255.
[2023-02-17 20:57] LABS: Glucose Point of Care 160 mg/dl (65-105)
[2023-02-17] MEDS: LABETALOL HCL 100 MG TABLET PO (20:57)
[2023-02-17] MEDS: traZODone HCL 50 MG TABLET 200 MG PO (20:58)
[2023-02-17] MEDS: CYCLOBENZAPRINE HCL 10 MG TABLET PO (21:08)
[2023-02-17] MEDS: SODIUM CHLORIDE 0.9% IV 1,000 ML 999 ML IV CONT (23:32)
[2023-02-18] VITALS (11 sets, daily range): BP systolic 93–132; BP diastolic 55–67; PULSE 62–76; RESP 16–20; TEMP 36.1–37.4; O2SAT 96–100
[2023-02-18] MEDS: MECLIZINE HCL 25 MG TABLET PO (05:18)
[2023-02-18 08:21] LABS: Glucose Point of Care 74 mg/dl (65-105)
[2023-02-18] MEDS: ASPIRIN 81 MG CHEWABLE TABLET PO (09:15)
[2023-02-18] MEDS: ENOXAPARIN 40 MG/0.4 ML SYRINGE SUB-Q (09:17)
[2023-02-18] MEDS: carvediloL 12.5 MG TABLET PO ×2 (09:18→20:27)
[2023-02-18] MEDS: MULTIVITAMINS THERAPEUTIC TAB (*BKC) 1 TABLET PO (09:19)
[2023-02-18] MEDS: DICLOFENAC SOD 75 MG TABLET.EC PO ×2 (09:20→17:55)
[2023-02-18] MEDS: EZETIMIBE 10 MG TABLET PO (09:21)
[2023-02-18] MEDS: lamoTRIgine 50 MG TABLET PO ×2 (09:22→20:27)
[2023-02-18] MEDS: FLUTICASONE PROP 44 MCG (*SP) 10.6 GM 2 PUFF INHALATION ×2 (09:57→19:26)
--- NOTE | 2023-02-18 11:14 | PM.IMPN ---
Progress Note: A&P Assessment and Plan (1) Chest pain: Qualifiers: Chest pain type: unspecified Qualified Code(s): R07.9 - Chest pain, unspecified Code(s): R07.9 - Chest pain, unspecified Status: Acute (2) Insulin dependent type 2 diabetes mellitus: Code(s): E11.9 - Type 2 diabetes mellitus without complications; Z79.4 - snf (current) use of insulin Status: Acute (3) Hypertension: Qualifiers: Hypertension type: unspecified Qualified Code(s): I10 - Essential (primary) hypertension Code(s): I10 - Essential (primary) hypertension Status: Acute Plan #right-sided chest pain: She 0 troponin negative reproducible chest pain. CTA with no acute findings. Conservative management. add lidocaine patch # accelerated hypertension improved likely related to pain. more hypotensive now. Will back off on some of the medications and monitor #Type 2 diabetes on [id number] at 7 #Asthma/ COPD not on exacerbation #Coronary artery disease unclear history #History of cardiomyopathy # Hyperlipidemia # Anxiety/ depression # Seizure disorder #DVT prophylaxis Lovenox Code status full code Subjective Date/time seen: 02/18/23 11:14 Interval history: patient feeling tired and dizzy this morning. She still has the chest pain on the right side. No shortness of breath Review of Systems Review of Systems: All systems reviewed & are unremarkable except as noted in HPI and below Exam Narrative: General: Well-developed, nontoxic-appearing female in the semi-Rice position in bed. HEENT: PERRL, EOMI. Sclera anicteric. Oral mucosa moist. Neck: Supple. Respiratory: Lungs are clear to auscultation bilaterally. No respiratory distress Cardiovascular: Regular rate and rhythm with S1-S2. Chest: Reproducible tenderness to palpation over the right lateral breast. Gastrointestinal: Abdomen is soft, nontender, and nondistended with positive bowel sounds. No guarding rebound tenderness. Negative Ponce sign. Skin: Warm and dry. Right arm does not look significantly swollen. She does have evidence of mosquito bites. No rash noted on the chest wall. Extremities: No cyanosis, clubbing, or edema. Radial and pedal pulses intact. Musculoskeletal: She has tenderness to palpation over the right lateral breast in in the right lateral back below the scapula. Neurological: Alert. Cranial nerves 2-12 are grossly intact. No gross focal deficits to casual conversation. Psychiatric: Appropriate mood and affect. Objective Data Vital Signs Vital Signs: Vital Signs - 24 hr 02/17/23 12:00 02/17/23 12:00 02/17/23 16:00 Temperature 98 F 97.4 F L Pulse Rate 76 73 87 Respiratory Rate 18 18 Blood Pressure 147/65 H 114/70 Pulse Oximetry 99 100 Oxygen Delivery 02/17/23 19:57 02/17/23 20:26 02/17/23 20:28 Temperature 97.1 F L Pulse Rate 70 67 Respiratory Rate 20 18 Blood Pressure 135/68 Pulse Oximetry 99 97 Oxygen Delivery Room Air 02/17/23 20:47 02/17/23 20:57 02/17/23 20:58 Temperature 96 F L Pulse Rate 66 66 66 Respiratory Rate 19 Blood Pressure 152/82 H Pulse Oximetry 100 Oxygen Delivery 02/17/23 23:01 02/17/23 20:50 02/18/23 00:32 Temperature 97 F L Pulse Rate 80 Respiratory Rate 18 Blood Pressure 87/55 L 93/55 L Pulse Oximetry 98 Oxygen Delivery Room Air 02/18/23 04:00 02/18/23 08:30 02/18/23 09:18 Temperature 97.1 F L 97.0 F L Pulse Rate 63 76 76 Respiratory Rate 18 18 Blood Pressure 111/66 119/67 Pulse Oximetry 98 99 Oxygen Delivery 02/18/23 09:31 Temperature Pulse Rate Respiratory Rate Blood Pressure Pulse Oximetry 96 Oxygen Delivery Room Air Intake/Output Intake/Output: Intake & Output 02/15/23 02/16/23 02/17/23 02/18/23 23:59 23:59 23:59 23:59 Intake Total 240 970 510 Output Total 300 600 Balance -60 370 510 Meds/Results Medications: Activ
[2023-02-18 12:03] LABS: Glucose Point of Care 121 mg/dl (65-105)
[2023-02-18] MEDS: INSULIN ASPART (*BKC) 100 UNITS/ML 6 UNITS SUB-Q ×2 (12:29→17:55)
[2023-02-18 17:44] LABS: Glucose Point of Care 112 mg/dl (65-105)
[2023-02-18] MEDS: GLIMEPIRIDE 2 MG TABLET PO (17:55)
[2023-02-18 20:26] LABS: Glucose Point of Care 153 mg/dl (65-105)
[2023-02-18] MEDS: traZODone HCL 50 MG TABLET 200 MG PO (20:27)
[2023-02-18] MEDS: DULoxetine HCL 20 MG CAPSULE.DR 40 MG PO (20:27)
[2023-02-18] MEDS: CYCLOBENZAPRINE HCL 10 MG TABLET PO (20:27)
[2023-02-18] MEDS: INSULIN GLARGINE (*BKC) 100 UNITS/ML 42 UNITS SUB-Q (20:30)
[2023-02-19 04:00] VITALS: BP 129/78; PULSE 65; RESP 20; TEMP 37; O2SAT 99
--- NOTE | 2023-02-19 05:43 | PC.NURSE ---
Addendum entered by Jessica Burr RN 02/19/23 06:02: Recheck blood sugar was 119 @0559. Original Note: Pt called up front and stated she was starting to feel like her blood sugar was low. Blood sugar checked and was 63. Juice and snacks given to bring up glucose. Will recheck blood sugar in 15 minutes.
[2023-02-19 05:44] LABS: Glucose Point of Care 63 mg/dl (65-105)
[2023-02-19 05:58] LABS: Basophils Percent Auto 0.8 % (0.2-1.2); Eosinophils Absolute Auto 0.1 K/mm3 (0-0.3); Eosinophils Percent Auto 1.8 % (0-4.4); Hemoglobin 11.4 g/dL (12.0-15.0); Immature Granulocyte Absolute 0.02 K/mm3 (0.00-0.031); Immature Granulocyte Percent A 0.4 % (0-0.5); Lymphocytes Absolute Auto 2.59 K/mm3 (0.9-3.2); Lymphocytes Percent Auto 52.5 % (18.3-44.2); Mean Corpuscular HGB Conc 32.6 g/dl (32-36); Mean Corpuscular Hemoglobin 32.1 pg (26-34); Mean Corpuscular Volume 98.6 fl (80-100); Mean Platelet Volume 10.4 fl (7.4-10.4); Monocytes Absolute Auto 0.4 K/mm3 (0.1-0.6); Monocytes Percent Auto 8.9 % (2.6-8.5); Neutrophils Absolute Auto 1.8 K/mm3 (1.3-6.7); Neutrophils Percent Auto 35.6 % (45.5-73.1); Platelet Count Result 244 k/mm3 (150-375); Red Blood Count 3.55 M/mm3 (4.2-5.4); Red Cell Distribution Width 12.9 % (11.5-14.5); White Blood Count 4.9 K/mm3 (4.5-10.0)
[2023-02-19 06:07] LABS: Glucose Point of Care 119 mg/dl (65-105)
[2023-02-19 06:26] LABS: Alanine Aminotransferase 17 U/L (6-35); Albumin Level 3.9 g/dL (3.5-5.1); Alkaline Phosphatase 45 U/L (38-126); Anion Gap 5 mmol/L (8-16); Aspartate Amino Transferase 21 U/L (14-36); Bilirubin,Total 0.4 mg/dL (0.2-1.3); Blood Urea Nitrogen 18 mg/dL (7-17); Calcium 8.6 mg/dL (8.4-10.2); Carbon Dioxide 28 mmol/L (22-30); Chloride 108 mmol/L (98-107); Estimated CRCL calculation 81 ml/min; Estimated Glomerular Filt Rate > 60; Glucose 51 mg/dL (65-110); Magnesium 2.2 mg/dL (1.6-2.3); Potassium 3.9 mmol/L (3.4-5.0); Sodium 141 mmol/L (137-145)
[2023-02-19 08:24] LABS: Glucose Point of Care 173 mg/dl (65-105)
[2023-02-19] MEDS: FLUTICASONE PROP 44 MCG (*SP) 10.6 GM 2 PUFF INHALATION (08:38)
[2023-02-19 08:40] VITALS: BP 124/64; PULSE 66; RESP 18; TEMP 36.4; O2SAT 100
[2023-02-19] MEDS: ENOXAPARIN 40 MG/0.4 ML SYRINGE SUB-Q (09:08)
[2023-02-19] MEDS: EMPAGLIFLOZIN 10 MG TABLET PO (09:08)
[2023-02-19] MEDS: ASPIRIN 81 MG CHEWABLE TABLET PO (09:08)
[2023-02-19] MEDS: lisinopriL 20 MG TABLET 40 MG PO (09:08)
[2023-02-19] MEDS: EZETIMIBE 10 MG TABLET PO (09:08)
[2023-02-19] MEDS: INSULIN ASPART (*BKC) 100 UNITS/ML 6 UNITS SUB-Q ×2 (09:09→12:12)
[2023-02-19] MEDS: GLIMEPIRIDE 2 MG TABLET PO (09:09)
[2023-02-19] MEDS: DICLOFENAC SOD 75 MG TABLET.EC PO (09:09)
[2023-02-19 09:10] VITALS: PULSE 65
[2023-02-19] MEDS: carvediloL 12.5 MG TABLET PO (09:10)
[2023-02-19] MEDS: hydroCHLOROthiazide 25 MG TABLET PO (09:11)
[2023-02-19] MEDS: SPIRONOLACTONE 25 MG TABLET PO (09:11)
[2023-02-19] MEDS: lamoTRIgine 50 MG TABLET PO (09:11)
[2023-02-19] MEDS: MULTIVITAMINS THERAPEUTIC TAB (*BKC) 1 TABLET PO (09:11)
[2023-02-19 09:14] VITALS: BP 124/64
[2023-02-19] MEDS: amLODIPine BESYLATE 5 MG TABLET 10 MG PO (09:15)
[2023-02-19] MEDS: ACETAMINOPHEN 325 MG TABLET 650 MG PO (09:21)
[2023-02-19 11:56] LABS: Glucose Point of Care 171 mg/dl (65-105)
--- NOTE | 2023-02-19 12:05 | PM.DS ---
DS: Admitting Diagnosis Discharge Date 02/19/23 Admitting Diagnosis Chest pain DS: Discharge Diagnosis Discharge Diagnosis (1) Chest pain: Qualifiers: Chest pain type: unspecified Qualified Code(s): R07.9 - Chest pain, unspecified Code(s): R07.9 - Chest pain, unspecified Status: Acute (2) Insulin dependent type 2 diabetes mellitus: Code(s): E11.9 - Type 2 diabetes mellitus without complications; Z79.4 - watermaster (current) use of insulin Status: Acute (3) Hypertension: Qualifiers: Hypertension type: unspecified Qualified Code(s): I10 - Essential (primary) hypertension Code(s): I10 - Essential (primary) hypertension Status: Acute DS: Summary Hospital Course Hospital Course: #right-sided chest pain:? Cereal troponin negative reproducible chest pain.? CTA with no acute findings.? Conservative management. ? add lidocaine patch and diclofenac already on board ?# accelerated hypertension improved likely related to pain. more hypotensive? now.? Will back off on some of the medications and monitor stable blood pressure on current regimen. She was not taking her blood pressure medication as directed such as taking it every other day. She is advised to be compliant with her medications as ordered ?#Type 2 diabetes on [id number] at 7 on Lantus lispro Amaryl and Jardiance. Continue same and follow-up with PCP with regard to continued management ?#Asthma/ COPD not on exacerbation ?#Coronary artery disease? unclear history sees foot piece assembler. Suggest to follow-up with him. ?#History of cardiomyopathy ?# Hyperlipidemia ?# Anxiety/ depression ?# Seizure disorder ?#DVT prophylaxis Lovenox Code status full code Time Spent with Patient Time attestation: Total time spent providing and/or coordinating discharge services: 35 minutes Exam Narrative: General: Well-developed, nontoxic-appearing female in the semi-Rice position in bed. HEENT: PERRL, EOMI. Sclera anicteric. Oral mucosa moist. Neck: Supple. Respiratory: Lungs are clear to auscultation bilaterally. No respiratory distress Cardiovascular: Regular rate and rhythm with S1-S2. Chest: Reproducible tenderness to palpation over the right lateral breast. Gastrointestinal: Abdomen is soft, nontender, and nondistended with positive bowel sounds. No guarding rebound tenderness. Negative Ponce sign. Skin: Warm and dry. Right arm does not look significantly swollen. She does have evidence of mosquito bites. No rash noted on the chest wall. Extremities: No cyanosis, clubbing, or edema. Radial and pedal pulses intact. Musculoskeletal: She has tenderness to palpation over the right lateral breast in in the right lateral back below the scapula. Neurological: Alert. Cranial nerves 2-12 are grossly intact. No gross focal deficits to casual conversation. Psychiatric: Appropriate mood and affect. DS: Data Data Completed and Pending Labs on day of discharge: Labs from last 24 hours 02/19/23 02/19/23 02/19/23 11:51 08:09 05:59 WBC RBC Hgb Hct MCV MCH MCHC RDW Plt Count MPV Immature Gran % (Auto) Neut % (Auto) Lymph % (Auto) Robertson % (Auto) Eos % (Auto) Baso % (Auto) Lymph # (Auto) Robertson # (Auto) Eos # (Auto) Baso # (Auto) Abs Immat Gran (auto) Absolute Neuts (auto) Absolute Nucleated RBC Nucleated RBC % Sodium Potassium Chloride Carbon Dioxide Anion Gap BUN Creatinine Estim Creat Clear Calc Estimated GFR Glucose POC Capillary Glucose 171 H 173 H 119 H Calcium Magnesium Total Bilirubin AST ALT Alkaline Phosphatase Total Protein Albumin 02/19/23 02/19/23 02/18/23 05:39 05:18 20:23 WBC 4.9 RBC 3.55 L Hgb 11.4 L Hct 35.0 L MCV 98.6 MCH 32.1 MCHC 32.6 RDW 12.9 Plt Count 244 MPV 10.4 Immature Gran % (Auto) 0.4 Neut % (
[2023-02-19 12:29] VITALS: BP 128/64; PULSE 64; RESP 18; TEMP 36.6; O2SAT 100
== END 2023-02-19 13:30 | disposition home or self-care (01) | DRG 198 ==
LOC: ANHED 13:21 → ANHIMU 14:36 → ANH2MED 02-17 20:34
PROVIDERS: Physician Assistant; Admitting Provider Student in an Organized Health Care Education/Training Program; Emergency Provider Emergency Medicine; PCP Internal Medicine Infectious Disease; Visit Provider Internal Medicine
DX: R07.9 Chest pain, unspecified (principal); I25.10 Atherosclerotic heart disease of native coronary artery without angina pectoris; E11.9 Type 2 diabetes mellitus without complications; Z79.4 Long term (current) use of insulin; I10 Essential (primary) hypertension; J44.9 Chronic obstructive pulmonary disease, unspecified; E78.5 Hyperlipidemia, unspecified; F41.9 Anxiety disorder, unspecified; F32.A Depression, unspecified; G40.909 Epilepsy, unspecified, not intractable, without status epilepticus; Z88.5 Allergy status to narcotic agent; F17.210 Nicotine dependence, cigarettes, uncomplicated; Z79.899 Other long term (current) drug therapy
CPT/HCPCS: 36415; 71046; 71275; 77063; 77067; 80053; 82948; 83036; 83605; 83735; 83880; 84145; 84443; 84484; 85025; 85027; 85610; 85730; 93005; 94640; 96372; 96374; 96375; 96376; 99285; A9270; G0378; G0379; J0360; J1170; J1200; J1650; J1815; J1885; J2270; J7030; Q9967